=== PATIENT | female | born 1980 | race Caucasian/White ===

== ENCOUNTER 2023-07-30 05:36 | Emergency (ER) | payer OTHER, SELFPAY ==
[2023-07-30 05:39] VITALS: BP 137/96; PULSE 83; RESP 18; TEMP 36.7; O2SAT 100; BMI 27.4
--- NOTE | 2023-07-30 05:52 | ED_ITS ---
HPI - Animal Bite General Chief Complaint: Animal Bite Stated Complaint: guinea pig bite right point finger Time Seen by Provider: 07/30/23 05:50 Source: patient Mode of arrival: walk-in Limitations: no limitations History of Present Illness HPI narrative: feeding her guinea pig 2 days ago and it bit her on the tip of the right index finger. Now presents with swelling and erythema of the tip of the finger. Descri bes a fire pain. no weakness or numbness Related Data Home Medications Medication Instructions Recorded Confirmed levothyroxine 112 mcg tablet mcg 07/30/23 metformin 500 mg tablet mg 07/30/23 venlafaxine 100 mg tablet mg 07/30/23 Allergies Allergy/AdvReac Type Severity Reaction Status Date / Time No Known Drug Allergies Allergy Verified 07/30/23 05:43 Review of Systems ROS Status of ROS 10 or more systems reviewed and unremark able except as noted in history and below [facility] Social History Smoking status: Never smoker Exam Constitutional Vital Signs, click to edit/add: Last Vital Signs Temp 98.1 F 07/30/23 05:39 Pulse 83 07/30/23 05:39 Resp 18 07/30/23 05:39 BP 137/96 H 07/30/23 05:39 Pulse Ox 100 07/30/23 05:39 O2 Del Method Room Air 07/30/23 05:39 Common normals: no apparent distress, average body habitus, oriented x3, no limitations, healthy appearing, alert and well nourished [facility] Common normals: normocephalic and head/scalp atraumatic Eye Common normals: PERRL, EOMs intact bilaterally and conjunctivae normal Respiratory Common normals: normal respiratory effort, no retractions, no use of accessory muscles and clear to auscultation bilaterally Cardio Common normals: regular rate, regular rhythm, S1 normal heart sound and S2 normal heart sound Extremity Other: distal aspect of right index finger with erythema and closed cut. Mild swelling and mod. tenderness. no red streaks Neuro Common normals: oriented x3, CN's II-XII intact bilaterally, moves all extremities, no focal motor deficits and no sensory deficits noted Psych Appearance: grossly normal Course Vital Signs Vital signs: Vital Signs Temperature 98.1 F 07/30/23 05:39 Pulse Rate 83 07/30/23 05:39 Respiratory Rate 18 07/30/23 05:39 Blood Pressure 137/96 H 07/30/23 05:39 Pulse Oximetry 100 07/30/23 05:39 Oxygen Delivery Method Room Air 07/30/23 05:39 Temperature 98.1 F 07/30/23 05:39 Pulse Rate 83 07/30/23 05:39 Respiratory Rate 18 07/30/23 05:39 Blood Pressure 137/96 H 07/30/23 05:39 Pulse Oximetry 100 07/30/23 05:39 Oxygen Delivery Method Room Air 07/30/23 05:39 MDM - Animal Bite MDM Narrative Medical decision making narrative: patient bitten 2 days ago by family pet on tip of the right index finger. the bite wound is closed but infected. Patient given dose of Augmentin and discharged to follow up with her doctor Discharge Plan Discharge Stand Alone Forms: Portal Instructions Chief Complaint: Animal Bite Clinical Impression: Cellulitis of finger, Bite by animal Patient Disposition: Home, Self-Care Prescriptions / Home Meds: No Action metformin 500 mg tablet venlafaxine 100 mg tablet levothyroxine 112 mcg tablet Instructions: Cellulitis (ED) Additional Instructions: follow up with the family doctor for recheck in 2-3 days Referrals: Physician,Non-Staff, MD [Primary Care Provider] - 1 week
[2023-07-30] MEDS: AMOXICILLIN/POTASSIUM CLAV 1 TAB TABLET PO (06:12)
== END 2023-07-30 06:18 | disposition home or self-care (01) ==
PROVIDERS: Emergency Provider Internal Medicine
DX: S61.250A Open bite of right index finger without damage to nail, initial encounter (principal); L03.011 Cellulitis of right finger; W64.XXXA Exposure to other animate mechanical forces, initial encounter; Z79.84 Long term (current) use of oral hypoglycemic drugs; Z79.899 Other long term (current) drug therapy; Z79.890 Hormone replacement therapy
CPT/HCPCS: 99283

== ENCOUNTER 2023-12-25 21:36 | Outpatient (REF) | payer OTHER, SELFPAY ==
--- OUTSIDE RECORDS SUMMARY | 2023-12-25 21:40 | XMS_ITS | CCD ---
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 Name Role Phone Elizabeth Cabrera Unavailable MAXIMO ., DR HIWOT Llamas Consulting Unavailable BRADSHAW ., DR HIWOT Llamas Attending Unavailable BRADSHAW ., DR HIWOT Llamas Admitting Unavailable BRADSHAW ., DR HIWOT Llamas Primary Care Unavailable ANGEL ., DR GERMAIN Admitting Unavailable ANGEL ., DR GERMAIN Consulting Unavailable ANGEL ., DR GERMAIN Attending Unavailable BRADSHAW ., DR HIWOT Llamas Primary Care Unavailable Aki, Maddison Copeland Primary Care Physician Aki, Maddison Copeland Attending Unavailable Aki, Maddison L Attending Unavailable Aki, Maddison L Attending Unavailable Aki, Maddison L Attending Unavailable Aki, Maddison L Attending Unavailable Aki, Maddison L Attending Unavailable Aki, Maddison L Attending Unavailable Aki, Maddison L Admitting Unavailable Aki, Maddison L Attending Unavailable Aki, Maddison L Admitting Unavailable Aki, Maddison L Attending Unavailable Aki, Maddison L Admitting Unavailable Aki, Maddison L Attending Unavailable Aki, Maddison L Admitting Unavailable Aki, Maddison L Attending Unavailable Aki, Maddison L Admitting Unavailable Aki, Maddison L Attending Unavailable Aki, Maddison L Attending Unavailable Aki, Maddison L Attending Unavailable Allergies Allergy Classification Reported Allergen(s) Allergy Type Date of Onset Reaction(s) Facility (1 source) Megestrol Drug Allergy [facility] Repository (1 source) No Known Medication Allergies; Translations: [No Known Medication Allergies] Propensity to adverse reactions (disorder) [facility] Repository Medications Current Medications Medication Drug Class(es) Dates Sig (Normalized) Sig (Original) busPIRone hydrochloride 10 mg oral tablet (1 source) Start: 01-29-2023 take 1 tablet by mouth three times daily as needed for anxiety busPIRone 10 mg Tab 10 mg = 1 tab(s), Oral, TID, PRN Anxiety, # 90 tab(s), Refills(s) 0, Pharmacy: [facility]/pharmacy #[id number], 155, cm, 01/29/23 10:36:00 EDT, Height/Length Dosing, 64.5, kg, 01/29/23 10:36:00 EDT, Weight Dosing Start Date: 01/29/23 Status: Ordered cephalexin 500 mg oral capsule (2 sources) Cephalosporin Antibacterial Start: 02-14-2023 take 1 capsule by mouth every twelve hours cephalexin 500 mg Cap 500 mg = 1 cap(s), Oral, q12hr, # 20 cap(s), Refills(s) 0, Pharmacy: [facility]/pharmacy #[id number], 155, cm, 02/14/23 8:53:00 EDT, Height/Length Dosing, 66.8, kg, 02/14/23 8:53:00 EDT, Weight Dosing Start Date: 02/14/23 Status: Ordered cyclobenzaprine hydrochloride 7.5 mg oral tablet (1 source) Muscle Relaxant Start: 12-03-2023 take 1 tablet by mouth twice daily as needed for muscle spasms cyclobenzaprine 7.5 mg oral tablet 7.5 mg = 1 tab(s), Oral, BID, PRN for spasm, # 30 tab(s), Refills(s) 0, [id number], cm, 12/03/23 9:08:00 EDT, Height/Length Dosing, 65.5, kg, 12/03/23 9:08:00 EDT, Weight Dosing Start Date: 12/03/23 Status: Ordered levothyroxine sodium 0.088 mg oral tablet (6 sources) l-Thyroxine Start: 06-10-2023 take 1 tablet by mouth once daily levothyroxine 88 mcg (0.088 mg) Tab 88 mcg = 1 tab(s), Oral, Daily, # 90 tab(s), Refills(s) 1, Pharmacy: [facility]/pharmacy #[id number], 155, cm, 05/29/23 15:46:00 EST, Height/Length Dosing, 67.8, kg, 05/29/23 15:46:00 EST, Weight Dosing Start Date: 06/10/23 Status: Ordered Start: 03-15-2023 take 1 tablet by sven th once daily levothyroxine 88 mcg (0.088 mg) Tab 88 mcg = 1 tab(s), Oral, Daily, # 30 tab(s), Refills(s) 1, Pharmacy: [facility]/pharmacy #[id number], 155, cm, 02/14/23 8:53:00 EDT, Height/Length Dosing, 66.8, kg, 02/14/23 8:53:00 EDT, Weight Dosing Start Date: 03/15/23 Status: Ordered Start: 01-31-2023 take 1 capsule by [address] [facility] once daily levothyroxine 112 mcg (0.112 mg) oral capsule 112 mcg = 1 cap(s), Oral, Daily, # 30 cap(s), Refills(s) 1, Pharmacy: [facility]/pharmacy #[id number], 155, cm, 01/29/23 10:36:00 EDT, Height/Length Dosing, 64.5, kg, 01/29/23 10:36:00 EDT, Weight Dosing Start Date: 01/31/23 Status: Ordered Start: 09-12-2022 take 1 tablet by sven th once daily levothyroxine 125 mcg (0.125 mg) Tab 125 mcg = 1 tab(s), Oral, Daily, # 90 tab(s), Refills(s) 3, [id number] Start Date: 09/12/22 Status: Ordered Levothyroxine So dium Active meloxicam 15 mg oral tablet (1 source) Nonsteroidal Anti-inflammatory Drug Start: 12-03-2023 take 1 tablet by mouth once daily meloxicam 15 mg Tab 15 mg = 1 tab(s), Oral, Daily, # 30 tab(s), Refills(s) 0, Pharmacy: [facility]/pharmacy #[id number], 155, cm, 12/03/23 9:08:00 EDT, Height/Length Dosing, 65.5, kg, 12/03/23 9:08:00 EDT, Weight Dosing Start Date: 12/03/23 Status: Ordered metFORMIN hydrochloride 500 mg oral tablet (6 sources) Biguanide Start: 09-14-2022 take 1 tablet by mouth once daily metformin 500 mg Tab 500 mg = 1 tab(s), Oral, Daily, # 90 tab(s), Refills(s) 3, Pharmacy: [facility]/pharmacy #[id number], 155, cm, 01/29/23 10:36:00 EDT, Height/Length Dosing, 64.5, kg, 01/29/23 10:36:00 EDT, Weight Dosing Start Date: 01/29/23 Status: Ordered methylPREDNISolone 4 mg oral tablet (1 source) Corticosteroid Start: 12-03-2023 End: 12-09-2023 Medrol 4 mg Tab = 1 packet(s), Oral, As Directed, as directed on package labeling, X 6 day(s), # 21 tab(s), Refills(s) 0, Pharmacy: [facility]/pharmacy #[id number], 155, cm, 12/03/23 9:08:00 EDT, Height/Length Dosing, 65.5, kg, 12/03/23 9:08:00 EDT, Weight Dosing Start Date: 12/03/23 Stop Date: 12/09/23 Status: Ordered QUEtiapine 25 mg oral tablet (6 sources) Atypical Antipsychotic Start: 10-15-2023 take 1 tablet by mouth once daily quetiapine 25 mg Tab 25 mg = 1 tab(s), Oral, Daily, # 90 tab(s), Refills(s) 1, Pharmacy: [facility]/pharmacy #[id number], 155, cm, 05/29/23 15:46:00 EST, Height/Length Dosing, 67.8, kg, 05/29/23 15:46:00 EST, Weight Dosing Start Date: 10/15/23 Status: Ordered Start: 04-22-2023 take 1 tablet by sven th once daily quetiapine 25 mg Tab 25 mg = 1 tab(s), Oral, Daily, # 90 tab(s), Refills(s) 1, Pharmacy: [facility]/pharmacy #[id number], 155, cm, 02/14/23 8:53:00 EDT, Height/Length Dosing, 66.8, kg, 02/14/23 8:53:00 EDT, Weight Dosing Start Date: 04/22/23 Status: Ordered Start: 09-14-2022 take 1 tablet by sven th once daily quetiapine 25 mg Tab 25 mg = 1 tab(s), Oral, Daily, # 90 tab(s), Refills(s) 0, Pharmacy: [facility]/pharmacy #[id number], 155, cm, 01/29/23 10:36:00 EDT, Height/Length Dosing, 64.5, kg, 01/29/23 10:36:00 EDT, Weight Dosing Start Date: 01/29/23 Status: Ordered Completed/Discontinued Medications Medication Drug Class(es) Dates Sig (Normalized) Sig (Original) venlafaxine 100 mg oral tablet (7 sources) Serotonin and Norepinephrine Reuptake Inhibitor Start: 09-14-2022 take 1 tablet by mouth once daily venlafaxine 100 mg Tab 100 mg = 1 tab(s), Oral, Daily, TAKE 1 TABLET BY MOUTH EVERY DAY, # 90 tab(s), Refills(s) 3, [id number], cm, 01/29/23 10:36:00 EDT, Height/Length Dosing, 64.5, kg, 01/29/23 10:36:00 EDT, Weight Dosing Start Date: 01/29/23 Status: Ordered Venlafaxine HCl Active Problems Problem Classification Problem Date Documented Da te Episodic/Chronic Anxiety disorders (5 sources) Anxiety 01-29-2023 Chronic Immunizations and screening for infectious disease (2 sources) Contact with and (suspected) exposure to other viral communicable diseases; Translations: [Contact with and (suspected) exposure to other viral communicable diseases] Episodic Lymphadenitis (4 sources) Lymphadenopathy 02-14-2023 Episodic Nausea and vomiting (1 source) Vomiting; Translations: [Vomiting, unspecified] Episodic Other gastrointestinal disorders (1 source) Irritable bowel syndrome; Translations: [Irritable bowel syndrome without diarrhea] Chronic Other gastrointestinal disorders (1 source) Diarrhea; Translations: [Diarrhea, unspecified] Episodic Other screening for suspected conditions (not mental disorders or infectious disease) (4 sources) Encounter for screening for malignant neoplasm of cervix; Translations: [ENC SCREENING MALIG NEOPLASM CERV] Onset: 07-03-2022 Episodic Other upper respiratory disease (4 sources) Nasal sinus problem 02-14-2023 Episodic Other upper respiratory infections (3 sources) Sore throat symptom; Translations: [Acute pharyngitis, unspecified] Episodic Ovarian cyst (5 sources) Cyst of ovary 09-14-2022 Episodic Spondylosis; intervertebral disc disorders; other back problems (1 source) Low back pain 12-03-2023 Episodic Thyroid disorders (5 sources) 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 Unclassified (2 sources) Patient encounter status 05-29-2023 Results Test Name Value Interpretation Reference Range Facility Reminderson 12-05-2023 Reminders Reminders - From: Maddison Basurto To: [facility] - Clinical; Sent: 12/05/2023 08:03:35 EDT Show up: 12/05/2023 08:03:00 EDT Subject: Ambulatory Reminder Due Date/Time: 12/06/2023 08:02:00 EDT back x ray multilevel osteoarthritis of lumbar spine, no fractures Results: Date Result Type Result Name 12/04/2023 18:07 Radiology XR Spine Lumbosacral Minimum 4 Views Gale called and advised, she will continue the meloxicam has only had 2 doses so far and if doesn't relieve things will be in touch [facility] XR Spine Lumbosacral Minimum 4 Viewson 12-04-2023 XR Spine Lumbosacral Minimum 4 Views Exam Date/Time: 12/03/2023 13:24 EDT Reason for Exam: M54.50, Z78.9;Back pain Report IMPRESSION: MILD MULTILEVEL OSTEOARTHRITIS OF LUMBAR SPINE. NO ACUTE FRACTURE CLINICAL HISTORY: Back pain, M54.50, Z78.9 COMPARISON: NONE FINDINGS: 6 views of the lumbar spine are submitted. There are 5 lumbar-type vertebra. There is narrowing of the L5-S1 disc space. There is mild degenerative changes posterior facets lower lumbar spine. No significant anterior spondylosis.. No significant listhesis. No spondylolysis. The SI joints are intact. No focal bony as No acute fracture Ordering Provider: Maddison Prabhakar FINAL REPORT Dictated: 12/04/2023 6:03 pm Ruben Szymanski Signed (Electronic Signature): 12/04/2023 6:03 pm Signed by: Ruben Szymanski Transcribed by: TOM Technologist: HELENA Technical Comments Radiation Dose: Ka,r in mGy = na DAP = na [facility] Ambulatory Visit Summaryon 0 12-03-2023 Ambulatory Visit Summary Ambulatory Visit Summary GALE SOSA :1980 Visit Date:12/03/2023 Ambulatory Visit Instructions Your Diagnosis Low back pain Non-smoker BMI 27.0-27.9,adult Your Care Team Attending Physician - Maddison Basurto Primary Care Physician - Maddison Basurto This Is Your Medications List levothyroxine (levothyroxine 88 mcg (0.088 mg) Tab) metformin (metformin 500 mg Tab) quetiapine (quetiapine 25 mg Tab) venlafaxine (venlafaxine 100 mg Tab) Procedures Performed AZEEM - Total abdominal hysterectomy (2021), Ablation (2020), section, Ovarian cyst, Right knee. Discharge Vitals Temperature (Temporal Artery) 36.9 ?C Heart Rate (Peripheral) 84 Respiratory Rate 16 Blood Pressure 122/80 Height 155.0 cm Height 61 in Weight 65.45 kg Weight 143.99 lb BMI 27.24 What to do next Scheduled Follow-Up Appointments Saturday 4:40 PM EDT With: Maddison Basurto Where: [facility] [place] [facility] Family Medicine Office/Clini [facility] Noteon 12-03-2023 Family Medicine Office/Clinic Note Family Medicine Office/Clinic Note HPI Staff Pt here today due to low back pain. Onset: started 6 weeks ago Location: lower back Duration: constant pain Characteristics: feels like somebody punched her Aggravated by: walking and bending too much walking Relieved by: Tried heat Advil did not help with either Timing:_ time does not matters Associated Symptoms:_ no Back issues since high school. Has had muscle relaxers to help the pain... did seem to help when she did take these. Would help for 2-3 days then wears off History of Present Illness pt presents today for low back pain Review of Systems PHQ Score Initial Depression Screen Score: 0 SCORE Physical Exam Vitals & Measurements T: 36.9 ?C(Temporal Artery) HR: 84(Peripheral) RR: 16 BP: 122/80 SpO2: 98% HT: 61 in HT: 155.0 cm WT: 65.45 kg WT: 143.99 lb BMI: 27.24 General: alert, no acute distress ENMT: oral mucosa moist, no pharyngeal erythema or exudate Cardiovascular: regular rate and rhythm, normal peripheral perfusion Respiratory: Lungs CTA, respirations non labored Extremities: no deformity, no trauma Neurological: oriented x 4, LOC appropriate for age, CN II-XII intact, motor strength equal & normal bilaterally, speech normal difficulty bending, putting on pants, getting in car Assessment/Plan 1. Low back pain (M54.50: Low back pain, unspecified) pt c/o low back pain. has had back pain since she was a teenager. was told about 15 years ago she had a protruding disc. back pain is starting to get worse. is trying to lose weight but exercising is difficult due to the pain. she has been doing stretches at home. will continue those for 6 weeks, will send meloxicam, medrol dose pack and muscle relaxer to pharmacy. Ordered: cyclobenzaprine, 7.5 mg = 1 tab(s), Oral, BID, PRN for spasm, # 30 tab(s), Refills(s) 0, [id number], cm, 12/03/23 9:08:00 EDT, Height/Length Dosing, 65.5, kg, 12/03/23 9:08:00 EDT, Weight Dosing meloxicam, 15 mg = 1 tab(s), Oral, Daily, # 30 tab(s), Refills(s) 0, [id number] 155, cm, 12/03/23 9:08:00 EDT, Height/Length Dosing, 65.5, kg, 12/03/23 9:08:00 EDT, Weight Dosing methylPREDNISolone, = 1 packet(s), Oral, As Directed, as directed on package labeling, X 6 day(s), # 21 tab(s), Refills(s) 0, Pharmacy: [facility]/pharmacy #[id number], 155, cm, 12/03/23 9:08:00 EDT, Height/Length Dosing, 65.5, kg, 12/03/23 9:08:00 EDT, Weight Dosing 2. Non-smoker (Z78.9: Other specified health status) continue not smoking Ordered: cyclobenzaprine, 7.5 mg = 1 tab(s), Oral, BID, PRN for spasm, # 30 tab(s), Refills(s) 0, Pharmacy: [facility]/pharmacy #[id number], 155, cm, 12/03/23 9:08:00 EDT, Height/Length Dosing, 65.5, kg, 12/03/23 9:08:00 EDT, Weight Dosing meloxicam, 15 mg = 1 tab(s), Oral, Daily, # 30 tab(s), Refills(s) 0, [id number] 155, cm, 12/03/23 9:08:00 EDT, Height/Length Dosing, 65.5, kg, 12/03/23 9:08:00 EDT, Weight Dosing methylPREDNISolone, = 1 packet(s), Oral, As Directed, as directed on package labeling, X 6 day(s), # 21 tab(s), Refills(s) 0, [id number] 155, cm, 12/03/23 9:08:00 EDT, Height/Length Dosing, 65.5, kg, 12/03/23 9:08:00 EDT, Weight Dosing 3. BMI 27.0-27.9,adult (Z68.27: Body mass index [BMI] 27.0-27.9, adult) BMI education given Ordered: cyclobenzaprine, 7.5 mg = 1 tab(s), Oral, BID, PRN for spasm, # 30 tab(s), Refills(s) 0, [id number] 155, cm, 12/03/23 9:08:00 EDT, Height/Length Dosing, 65.5, kg, 12/03/23 9:08:00 EDT, Weight Dosing meloxicam, 15 mg = 1 tab(s), Oral, Daily, # 30 tab(s), Refills(s) 0, [id number], 155, cm, 12/03/23 9:08:00 EDT, Height/Length Dosing, 65.5, kg, 12/03/23 9:08:00 EDT, Weight Dosing methylPREDNISolone, = 1 packet(s), Oral, As Directed, as directed on package labeling, X 6 day(s), # 21 tab(s), Refills(s) 0, [id number], 155, cm, 12/03/23 9:08:00 EDT, Height/Length Dosing, 65.5, kg, 12/03/23 9:08:00 EDT, Weight Dosing Follow-up No qualifying data available Problem List/Past Medical History Ongoing Anxiety Hailee's disease Low back pain Ovarian cyst Pre-employment examination Sinus pressure Swollen lymph nodes Historical No qualifying data Procedure/Surgical History AZEEM - Total abdominal hysterectomy (2021), Ablation (2020), section, Ovarian cyst, Right knee. Medications cyclobenzaprine 7.5 mg oral tablet, 7.5 mg= 1 tab(s), Oral, BID, PRN levothyroxine 88 mcg (0.088 mg) Tab, 88 mcg= 1 tab(s), Oral, Daily, 1 refills Medrol 4 mg Tab, 1 packet(s), Oral, As Directed meloxicam 15 mg Tab, 15 mg= 1 tab(s), Oral, Daily metformin 500 mg Tab, 500 mg= 1 tab(s), Oral, Daily, 3 refills quetiapine 25 mg Tab, 25 mg= 1 tab(s), Oral, Daily, 1 refills venlafaxine 100 mg Tab, 100 mg= 1 tab(s), Oral, Daily, 3 refills Allergies No Known Medication Allergies Social History Tobacco Never (less than 100 in lifetime) Tobacco Use:. Never Smokeless Tobacco Use:. C (more content not included)... [facility] Comment on above: Result Comment: Elec tronically Signed By: Maddison Basurto\.br\Date and Time Signed: 12/03/23 09:45 EDT Reminderson 06-10-2023 Reminders - From: Maddison Basurto To: B - Clinical; Sent: 06/10/2023 08:49:47 EST Show up: 06/10/2023 08:50:00 EST Subject: Ambulatory Reminder Due Date/Time: 06/11/2023 08:49:00 EST TSH is normal. does she need refills on meds? Results: Date Result Name Value Ref Range 06/07/2023 8:33 TSH 4.12 mcIU/mL (0.34 - 5.60) Patient informed of results. Patient does need a refill. Will be proposed in another message. [facility] Ambulatory Visit Summaryon 0 06-07-2023 Ambulatory Visit Summary GALE SOSA :1980 Visit Date:06/07/2023 Ambulatory Visit Instructions Your Care Team Attending Physician - Maddison Basurto Primary Care Physician - Maddison Basurto This Is Your Medications List levothyroxine (levothyroxine 88 mcg (0.088 mg) Tab) metformin (metformin 500 mg Tab) quetiapine (quetiapine 25 mg Tab) venlafaxine (venlafaxine 100 mg Tab) Procedures Performed AZEEM - Total abdominal hysterectomy (2021), Ablation (2020), section, Ovarian cyst, Right knee. Medications What How Much When Instructions Unchanged levothyroxine (levothyroxine 88 mcg (0.088 mg) Tab) 1 Tablets By Mouth Every day Unchanged metformin (metformin 500 mg Tab) 1 Tablets By Mouth Every day Unchanged quetiapine (quetiapine 25 mg Tab) 1 Tablets By Mouth Every day Unchanged venlafaxine (venlafaxine 100 mg Tab) 1 Tablets By Mouth Every day TAKE 1 TABLET BY MOUTH EVERY DAY Allergies No Known Medication Allergies Problems Ongoing - Any problem that you are currently receiving treatment for. Anxiety Hailee's disease Ovarian cyst Pre-employment examination Sinus pressure Swollen lymph nodes Patient Survey You may receive a survey via text or e-mail asking about your office visit. Please share your experience with us by completing your survey. We appreciate your feedback and thank you for choosing us for your care. [facility] CHEMISTRYOrdered By: SYSTEM SYSTEM on 06-07-2023 TSH Qn 4.12 m[IU]/L Normal 0.34 - 5.60 mcIU/mL Remisol Chem Nurse Consultation Noteon Nurse Consultation Note Physical Exam pt here for lab draw for TSH, pt tolerated well. Assessment/Plan Hypothyroid (E03.9: Hypothyroidism, unspecified) Medications levothyroxine 88 mcg (0.088 mg) Tab, 88 mcg= 1 tab(s), Oral, Daily, 1 refills metformin 500 mg Tab, 500 mg= 1 tab(s), Oral, Daily, 3 refills quetiapine 25 mg Tab, 25 mg= 1 tab(s), Oral, Daily, 1 refills venlafaxine 100 mg Tab, 100 mg= 1 tab(s), Oral, Daily, 3 refills Allergies No Known Medication Allergies Immunizations Vaccine Date Status diphtheria/pertussis , acel/tetanus adult 11/15/2018 Recorded [facility] TSHon 06-07-2023 TSH Qn 4.12 m[IU]/L Normal 0.34-5.60 [facility] Comment on above: Performed By: #### [id number] ####[facility] [id number] [place] [address] Formson 05-30-2023 Forms [id number] [facility] Ambulatory Visit Summaryon 0 05-29-2023 Ambulatory Visit Summary GALE SOSA :1980 Visit Date:05/29/2023 Ambulatory Visit Instructions Your Diagnosis BMI 28.0-28.9,adult Non-smoker Your Care Team Attending Physician - Maddison Basurto Primary Care Physician - Maddison Basurto This Is Your Medications List levothyroxine (levothyroxine 88 mcg (0.088 mg) Tab) metformin (metformin 500 mg Tab) quetiapine (quetiapine 25 mg Tab) venlafaxine (venlafaxine 100 mg Tab) Procedures Performed AZEEM - Total abdominal hysterectomy (2021), Ablation (2020), section, Ovarian cyst, Right knee. Discharge Vitals Heart Rate (Peripheral) 72 Respiratory Rate 18 Blood Pressure 110/80 Height 155 cm Height 61 in Weight 67.8 kg Weight 149.16 lb BMI 28.22 What to do next Scheduled Follow-Up Appointments Saturday 8:20 AM EST Where: [facility] [place] [facility] Family Medicine Office/Clini c Noteon 05-29-2023 Family Medicine Office/Clinic Note HPI Staff Gale is a 42 year old female presenting for physical paperwork Pt has form she needs filled out for work physical. 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 History of Present Illness pt presents today for pre-employment physical. 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 Cardiovascular: no chest pain, no palpitations, no edema. Neurologic: no headache, no dizziness, no numbness, no weakness. Physical Exam Vitals & Measurements HR: 72(Peripheral) RR: 18 BP: 110/80 SpO2: 99% HT: 61 in HT: 155 cm WT: 67.8 kg WT: 149.16 lb BMI: 28.22 General: alert, no acute distress ENMT: oral mucosa moist, no pharyngeal erythema or exudate Cardiovascular: regular rate and rhythm, normal peripheral perfusion Respiratory: Lungs CTA, respirations non labored Extremities: no deformity, no trauma Neurological: oriented x 4, LOC appropriate for age, CN II-XII intact, motor strength equal & normal bilaterally, speech normal Assessment/Plan 1. Pre-employment examination (Z02.1: Encounter for pre-employment examination) pt presents today for pre employment exam. denies needs. physical exam WNL. TB questions negative does not require TB test. all forms complete and scanned in. RTC as needed 2. BMI 28.0-28.9,adult (Z68.28: Body mass index [BMI] 28.0-28.9, adult) BMI education complete 3. Non-smoker (Z78.9: Other specified health status) continue not smoking Ordered: cephalexin, 500 mg = 1 cap(s), Oral, q12hr, # 20 cap(s), Refills(s) 0, [facility]: [id number], 155, cm, 02/14/23 8:53:00 EDT, Height/Length Dosing, 66.8, kg, 02/14/23 8:53:00 EDT, Weight Dosing Orders: levothyroxine, 50 mcg = 1 tab(s), Oral, Daily, # 30 tab(s), Refills(s) 1, Pharmacy: [facility]acy #[id number], 155, cm, 02/14/23 8:53:00 EDT, Height/Length Dosing, 66.8, kg, 02/14/23 8:53:00 EDT, Weight Dosing Follow-up No qualifying data available Problem List/Past Medical History Ongoing Anxiety Hailee's disease Ovarian cyst Pre-employment examination Sinus pressure Swollen lymph nodes Historical No qualifying data Procedure/Surgical History AZEEM - Total abdominal hysterectomy (2021), Ablation (2020), section, Ovarian cyst, Right knee. Medications levothyroxine 88 mcg (0.088 mg) Tab, 88 mcg= 1 tab(s), Oral, Daily, 1 refills metformin 500 mg Tab, 500 mg= 1 tab(s), Oral, Daily, 3 refills quetiapine 25 mg Tab, 25 mg= 1 tab(s), Oral, Daily, 1 refills venlafaxine 100 mg Tab, 100 mg= 1 tab(s), Oral, Daily, 3 refills Allergies No Known Medication Allergies Social History Tobacco Never (less than 100 in lifetime) Tobacco Use:. Never Smokeless Tobacco Use:. Household tobacco concerns: No., 05/29/2023 Immunizations Vaccine Date Status diphtheria/pertussis , acel/tetanus adult 11/15/2018 Recorded [facility] Comment on above: Result Comment: Elec tronically Signed By: Maddison Basurto\.br\Date and Time Signed: 05/29/23 16:16 EST Reminderson 04-26-2023 Reminders - From: Maddison Basurto To: B - Clinical; Sent: 04/25/2023 14:33:06 EST Show up: 04/25/2023 14:33:00 EST Subject: Ambulatory Reminder Due Date/Time: 04/26/2023 14:32:00 EST Let Yvette know we need to decrease her synthroid again. TSH is still too low Results: Date Result Name Ind Value Ref Range 04/24/2023 8:34 TSH ((L)) 0.07 mcIU/mL (0.34 - 5.60) spoke with patient notified of message below, transferred to electrician front to schedule 6 week re draw TSH [facility] CHEMISTRYOrdered By: SYSTEM SYSTEM on 04-24-2023 TSH Qn 0.07 m[IU]/L Low 0.34 - 5.60 mcIU/mL [facility] Remisol TSHon 04-24-2023 TSH Qn 0.07 m[IU]/L Low 0.34-5.60 [facility] Comment on above: Performed By: #### 2 [id number] ####[facility] [address] [place] [address] CHEMISTRYOrdered By: SYSTEM SYSTEM on 03-14-2023 TSH Qn 0.01 m[IU]/L Low 0.34 - 5.60 mcIU/mL [facility] Remisol TSHon 03-14-2023 TSH Qn 0.01 m[IU]/L Low 0.34-5.60 [facility] Comment on above: Performed By: #### 2 [id number] ####[facility] [address] [place] [address] Ambulatory Visit Summaryon 0 02-14-2023 Ambulatory Visit Summary GALE SOSA :1980 Visit Date:02/14/2023 Ambulatory Visit Instructions Your Diagnosis Swollen lymph nodes Sinus pressure Non-smoker BMI 27.0-27.9,adult Your Care Team Attending Physician - Maddison Basurto Primary Care Physician - Maddison Basurto This Is Your Medications List cephalexin (cephalexin 500 mg Cap) levothyroxine (levothyroxine 112 mcg (0.112 mg) oral capsule) metformin (metformin 500 mg Tab) methylPREDNISolone (Medrol Dosepack 4 mg Tab) quetiapine (quetiapine 25 mg Tab) venlafaxine (venlafaxine 100 mg Tab) Procedures Performed AZEEM - Total abdominal hysterectomy (2021), Ablation (2020), section, Ovarian cyst, Right knee. Discharge Vitals Heart Rate (Peripheral) 68 Respiratory Rate 18 Blood Pressure 126/84 Height 155 cm Height 61 in Weight 66.85 kg Weight 147.07 lb BMI 27.83 What to do next Scheduled Follow-Up Appointments 2022 8:20 AM EDT Where: [facility] Medicine Christina Normal [facility] Family Medicine Office/Clini c Noteon 02-14-2023 Family Medicine Office/Clinic Note HPI Staff Gale is a 42 year old female presenting for acute visit Onset: 2 days ago Pain Location: swollen lymph nodes right side Aggravated by: turning head to left Relieved by: unsure OTC used: none Questions/Concerns: Denies any sinus symptoms no sore throat, pt states when she wakes up in the morning it slightly swelled pain isn't to bad once she up and talking by afternoon is larger and more painful. pt states stopped taking Buspirone because she didn't feel any different while taking it. History of Present Illness pt presents today for swollen and painful lymph node on right side of neck. Review of Systems PHQ Score Initial Depression Screen Score: 0 ROS - Provider Constitutional: no fever, no chills, no sweats, no fatigue Respiratory: no shortness of breath, no cough, no orthopnea, no wheezing. Cardiovascular: no chest pain, no palpitations, no edema. Neurologic: no headache, no dizziness, no numbness, no weakness. swollen lymph node right neck Physical Exam Vitals & Measurements HR: 68(Peripheral) RR: 18 BP: 126/84 SpO2: 99% HT: 61 in HT: 155 cm WT: 66.85 kg WT: 147.07 lb BMI: 27.83 General: alert, no acute distress ENMT: oral mucosa moist, no pharyngeal erythema or exudate Cardiovascular: regular rate and rhythm, normal peripheral perfusion Respiratory: Lungs CTA, respirations non labored Extremities: no deformity, no trauma Neurological: oriented x 4, LOC appropriate for age, CN II-XII intact, motor strength equal & normal bilaterally, speech normal right sided swollen lymph node Assessment/Plan 1. Swollen lymph nodes (R59.9: Enlarged lymph nodes, unspecified) pt c/o swollen tender lymph node since Saturday. Also having sinus pressure on right side as well. will treat with antibiotics and steroid. all questions answered. RTC as needed Ordered: cephalexin, 500 mg = 1 cap(s), Oral, q12hr, # 20 cap(s), Refills(s) 0, Pharmacy: [facility]/pharmacy #[id number], 155, cm, 02/14/23 8:53:00 EDT, Height/Length Dosing, 66.8, kg, 02/14/23 8:53:00 EDT, Weight Dosing methylPREDNISolone, = 1 packet(s), Oral, As Directed, as directed on package labeling, X 6 day(s), # 21 tab(s), Refills(s) 0, [id number] 155, cm, 02/14/23 8:53:00 EDT, Height/Length Dosing, 66.8, kg, 02/14/23 8:53:00 EDT, Weight Dosing 2. Sinus pressure (J34.89: Other specified disorders of nose and nasal sinuses) see above Ordered: cephalexin, 500 mg = 1 cap(s), Oral, q12hr, # 20 cap(s), Refills(s) 0, [id number], 155, cm, 02/14/23 8:53:00 EDT, Height/Length Dosing, 66.8, kg, 02/14/23 8:53:00 EDT, Weight Dosing methylPREDNISolone, = 1 packet(s), Oral, As Directed, as directed on package labeling, X 6 day(s), # 21 tab(s), Refills(s) 0, [id number], 155, cm, 02/14/23 8:53:00 EDT, Height/Length Dosing, 66.8, kg, 02/14/23 8:53:00 EDT, Weight Dosing 3. Non-smoker (Z78.9: Other specified health status) Continue not smoking Ordered: cephalexin, 500 mg = 1 cap(s), Oral, q12hr, # 20 cap(s), Refills(s) 0, [id number], 155, cm, 02/14/23 8:53:00 EDT, Height/Length Dosing, 66.8, kg, 02/14/23 8:53:00 EDT, Weight Dosing methylPREDNISolone, = 1 packet(s), Oral, As Directed, as directed on package labeling, X 6 day(s), # 21 tab(s), Refills(s) 0, [id number], 155, cm, 02/14/23 8:53:00 EDT, Height/Length Dosing, 66.8, kg, 02/14/23 8:53:00 EDT, Weight Dosing 4. BMI 27.0-27.9,adult (Z68.27: Body mass index [BMI] 27.0-27.9, adult) BMI education complete Ordered: cephalexin, 500 mg = 1 cap(s), Oral, q12hr, # 20 cap(s), Refills(s) 0, [id number], 155, cm, 02/14/23 8:53:00 EDT, Height/Length Dosing, 66.8, kg, 02/14/23 8:53:00 EDT, Weight Dosing methylPREDNISolone, = 1 packet(s), Oral, As Directed, as directed on package labeling, X 6 day(s), # 21 tab(s), Refills(s) 0, [id number], 155, cm, 02/14/23 8:53:00 EDT, Height/Length Dosing, 66.8, kg, 02/14/23 8:53:00 EDT, Weight Dosing Orders: busPIRone, 10 mg = 1 tab(s), Oral, TID, PRN Anxiety, # 90 tab(s), Refills(s) 0, [id number], 155, cm, 01/29/23 10:36:00 EDT, Height/Length Dosing, 64.5, kg, 01/29/23 10:36:00 EDT, Weight Dosing Follow-up No qualifying data available Problem List/Past Medical History Ongoing Anxiety Hailee's disease Ovarian cyst Sinus pressure Swollen lymph nodes Historical No qualifying data Procedure/Surgical History AZEEM - Total abdominal hysterectomy (2021), Ablation (2020), section, Ovarian cyst, Right knee. Medications cephalexin 500 mg Cap, 500 mg= 1 cap(s), Oral, q12hr levothyroxine 112 mcg (0.112 mg) oral capsule, 112 mcg= 1 cap(s), Oral, Daily, 1 refills Medrol Dosepack 4 mg Tab, 1 packet(s), Oral, As Directed metformin 500 mg Tab, 500 mg= 1 tab(s), Oral, Daily, 3 refills quetiapine 25 mg Tab, 25 mg= 1 tab(s), Oral, Daily venlafaxine 100 mg Tab, 100 mg= 1 tab(s), Oral, Daily, 3 refills Allergies No Known M (more content not included)... Normal [facility] Comment on above: Result Comment: Elec tronically Signed By: Maddison Basurto\.br\Date and Time Signed: 02/14/23 09:06 EDT T3 Freeon 01-31-2023 Free T3 [Mass/Vol] 3.6 pg/mL Invalid Interpretation Code 2.0-4.4 [facility] Comment on above: Result Comment: Perf ormed at: [facility] [id number] PhD Monty Cedillo Performed By: #### 2 [id number] ####[facility] [address] [place] [address] Ambulatory Visit Summaryon 0 01-29-2023 Ambulatory Visit Summary GALE SOSA :1980 Visit Date:01/29/2023 Ambulatory Visit Instructions Your Diagnosis Hailee's disease Anxiety Your Care Team Attending Physician - Maddison Basurto Primary Care Physician - Maddison Basurto This Is Your Medications List levothyroxine (levothyroxine 125 mcg (0.125 mg) Tab) metformin (metformin 500 mg Tab) quetiapine (quetiapine 25 mg Tab) venlafaxine (venlafaxine 100 mg Tab) Procedures Performed AZEEM - Total abdominal hysterectomy (2021), Ablation (2020), section, Ovarian cyst, Right knee. Discharge Vitals Heart Rate (Peripheral) 76 Respiratory Rate 18 Blood Pressure 124/88 Height 155 cm Height 61 in Weight 64.5 kg Weight 141.9 lb BMI 26.85 Medications What How Much When Instructions Unchanged levothyroxine (levothyroxine 125 mcg (0.125 mg) Tab) 1 Tablets By Mouth Every day Unchanged metformin (metformin 500 mg Tab) 1 Tablets By Mouth Every day Unchanged quetiapine (quetiapine 25 mg Tab) 1 Tablets By Mouth At bedtime Unchanged venlafaxine (venlafaxine 100 mg Tab) 1 Tablets By Mouth Every day Allergies No Known Medication Allergies Problems Ongoing - Any problem that you are currently receiving treatment for. Anxiety Hailee's disease Ovarian cyst Normal [facility] CHEMISTRYOrdered By: SYSTEM SYSTEM on 01-29-2023 Free T4 [Mass/Vol] 1.77 ng/dL High 0.58 - 1. 64 ng/dL [facility] TSH Qn 0.01 m[IU]/L Low 0.34 - 5.60 mcIU/mL [facility] Remisol Family Medicine Office/Clini c Noteon 01-29-2023 Family Medicine Office/Clinic Note HPI Staff Gale is a 42 year old female presenting to establish care Establish Care: History: Any previous diagnosis: hypothyroidism, Anxiety History of seeing any specialist: When was your last doctors visit: Last provider: Dr Bradshaw Any recent labs: 04/17/2022 TSH 0.017 EDELMIRA: 11 Health Maintenance UTD: Colonoscopy: 2017 normal Mammogram: no Pelvic/Pap: 06/2022 normal Acute: Current issues/complaints: would like disscuss medication she does feel better since taking it but doesn't feel she is where she would like to be. History of Present Illness pt presents today to establish care Review of Systems PHQ Score Initial Depression Screen Score: 1 ROS - Provider Constitutional: no fever, no chills, no sweats, no fatigue Respiratory: no shortness of breath, no cough, no orthopnea, no wheezing. Cardiovascular: no chest pain, no palpitations, no edema. Neurologic: no headache, no dizziness, no numbness, no weakness. Physical Exam Vitals & Measurements HR: 76(Peripheral) RR: 18 BP: 124/88 SpO2: 99% HT: 61 in HT: 155 cm WT: 64.5 kg WT: 141.9 lb BMI: 26.85 General: alert, no acute distress ENMT: oral mucosa moist, no pharyngeal erythema or exudate Cardiovascular: regular rate and rhythm, normal peripheral perfusion Respiratory: Lungs CTA, respirations non labored Extremities: no deformity, no trauma Neurological: oriented x 4, LOC appropriate for age, CN II-XII intact, motor strength equal & normal bilaterally, speech normal Assessment/Plan 1. 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 last TSH was drawn in March 0.017. pt states Dr. Bradshaw wanted to keep it that low so he did not adjust dose at that time. will draw labs today. pt will have annual labs in March. Ordered: busPIRone, 10 mg = 1 tab(s), Oral, TID, PRN Anxiety, # 90 tab(s), Refills(s) 0, [id number] 155, cm, 01/29/23 10:36:00 EDT, Height/Length Dosing, 64.5, kg, 01/29/23 10:36:00 EDT, Weight Dosing Free T4 Lab Specimen Collect 25701 T3 Free Thyroid Stimulating Hormone 2. Anxiety (F41.9: Anxiety disorder, unspecified) pt states she feels better than when she was put on this medication . but feels like she still has anxiety depending on the situation. discussed options. pt would like to add Buspar up to three times per day if needed. she will start with once a day and see how she feels. and add as needed. RTC 4 weeks for follow up. Ordered: busPIRone, 10 mg = 1 tab(s), Oral, TID, PRN Anxiety, # 90 tab(s), Refills(s) 0, [id number], 155, cm, 01/29/23 10:36:00 EDT, Height/Length Dosing, 64.5, kg, 01/29/23 10:36:00 EDT, Weight Dosing Orders: metformin, 500 mg = 1 tab(s), Oral, Daily, # 90 tab(s), Refills(s) 3, [id number], 155, cm, 01/29/23 10:36:00 EDT, Height/Length Dosing, 64.5, kg, 01/29/23 10:36:00 EDT, Weight Dosing quetiapine, 25 mg = 1 tab(s), Oral, Daily, # 90 tab(s), Refills(s) 0, [id number], 155, cm, 01/29/23 10:36:00 EDT, Height/Length Dosing, 64.5, kg, 01/29/23 10:36:00 EDT, Weight Dosing venlafaxine, 100 mg = 1 tab(s), Oral, Daily, TAKE 1 TABLET BY MOUTH EVERY DAY, # 90 tab(s), Refills(s) 3, [id number], 155, cm, 01/29/23 10:36:00 EDT, Height/Length Dosing, 64.5, kg, 01/29/23 10:36:00 EDT, Weight Dosing Follow-up No qualifying data available Problem List/Past Medical History Ongoing Anxiety Hailee's disease Ovarian cyst Historical No qualifying data Procedure/Surgical History AZEEM - Total abdominal hysterectomy (2021), Ablation (2020), section, Ovarian cyst, Right knee. Medications busPIRone 10 mg Tab, 10 mg= 1 tab(s), Oral, TID, PRN levothyroxine 125 mcg (0.125 mg) Tab, 125 mcg= 1 tab(s), Oral, Daily, 3 refills metformin 500 mg Tab, 500 mg= 1 tab(s), Oral, Daily metformin 500 mg Tab, 500 mg= 1 tab(s), Oral, Daily, 3 refills quetiapine 25 mg Tab, 25 mg= 1 tab(s), Oral, Bedtime quetiapine 25 mg Tab, 25 mg= 1 tab(s), Oral, Daily venlafaxine 100 mg Tab, 100 mg= 1 tab(s), Oral, Daily venlafaxine 100 mg Tab, 100 mg= 1 tab(s), Oral, Daily, 3 refills Allergies No Known Medication Allergies Social History Tobacco Never (less than 100 in lifetime) Tobacco Use:. Never Smokeless Tobacco Use:. Household tobacco concerns: No., 01/29/2023 Immunizations Vaccine Date Status diphtheria/pertussis , acel/tetanus adult 11/15/2018 Recorded Normal [facility] Comment on above: Result Comment: Elec tronically Signed By: Maddison Basurto\.br\Date and Time Signed: 01/29/23 13:26 EDT Free T4on 01-29-2023 Free T4 [Mass/Vol] 1.77 ng/dL High 0.58-1.64 [facility] Comment on above: Performed By: #### 2 [id number] ####[facility] [address] [place] [address] TSHon 01-29-2023 TSH Qn 0.01 m[IU]/L Low 0.34-5.60 [facility] Comment on above: Performed By: #### 2 [id number], [id number] ####[facility] [address] [place] [id number] PAP ACOG PANEL 2: 21 to 29on 07-09-2022 . . Normal [facility] Comment on above: Result Comment: Perf ormed at: WB Performed By: #### 4 [id number] #### [facility] [address] [address] [address] Galen Meyers Age Gdln ACOG Testing 30-65 Normal [facility] Comment on above: Performed By: #### 4 [id number] #### [facility] [address] [address] [address] Galen Meyers DIAGNOSIS: Comment Normal [facility] Comment on above: Result Comment: NEGA TIVE FOR INTRAEPITHELIAL LESION OR MALIGNANCY. Performed at: WB Performed By: #### 4 [id number] #### [facility] [address] [place] [address] Dr. Galen Meyers HPV Aptima Negative Normal Negative [facility] Comment on above: Result Comment: This nucleic acid amplification test detects fourteen high-risk HPV types (16,18,31,33,35,39,45,51,52,56,58,59,66,68) without differentiation. Performed at: =G Performed By: #### 4 [id number] #### [facility] [address] [address] [address] Galen Meyers HPV Genotype Reflex Comment Normal [facility] Comment on above: Result Comment: Crit eria not met, HPV Genotype not performed. Performed at: WB Performed By: #### 4 [id number] #### [facility] [address] [address] [address] Galen Meyers Methodology: Comment Normal [facility] Comment on above: Result Comment: This liquid based ThinPrep(R) pap test was screened with the use of an image guided system. Performed at: WB Performed By: #### 4 [id number] #### [facility] [address] [place] [address] Dr. Galen Meyers Note: Comment Normal [facility] Comment on above: Result Comment: The Pap smear is a screening test designed to aid in the detection of premalignant and malignant conditions of the uterine cervix. It is not a diagnostic procedure and should not be used as the sole means of detecting cervical cancer. Both false-positive and false-negative reports do occur. . Performed at: WB Performed By: #### 4 [id number] #### [facility] [address] [place] [address] Dr. Galen Meyers Performed by: Comment Normal [facility] Comment on above: Result Comment: Inge Sneed, Italian Teacher (ASCP) Performed at: WB Performed By: #### 4 [id number] #### [facility] [address] [place] [address] Dr. Galen Meyers Specimen adequacy: Comment Normal [facility] Comment on above: Result Comment: Sati sfactory for evaluation. No endocervical component is identified. Performed at: WB Performed By: #### 4 [id number] #### [facility] [address] [place] [address] Dr. Galen Meyers CBC AUTO DIFFon 04-17-2022 BASO # 0.0 103/ul Normal 0.0-0.1 [facility] Comment on above: Performed By: #### C BC #### [facility] [address] [place] [address] Dr. Galen Meyers Basophils/100 WBC (Bld) 0.5 % Normal 0.2-2.0 [facility] Comment on above: Performed By: #### C BC #### [facility] [address] [place] [address] Dr. Galen Meyers EO # 0.2 103/ul Normal 0.0-0.7 [facility] Comment on above: Performed By: #### C BC #### [facility] [address] [place] [address] Dr. Galen Meyers Eosinophils/100 WBC (Bld) 2.2 % Normal 0.9-7.0 [facility] Comment on above: Performed By: #### C BC #### [facility] [address] [place] [address] Dr. Galen Meyers Erythrocyte distribution width (RBC) [Ratio] 13.5 % Normal 11.0-15.0 [facility] Comment on above: Performed By: #### C BC #### [facility] [address] [place] [address] Dr. Galen Meyers Hematocrit (Bld) [Volume fraction] 38.3 % Normal 36.0-48.0 [facility] Comment on above: Performed By: #### C BC #### [facility] [address] [place] [address] Dr. Galen Meyers Hemoglobin (Bld) [Mass/Vol] 12.7 g/dL Normal 12.0-16.0 [facility] Comment on above: Performed By: #### C BC #### [facility] [address] [place] [address] Dr. Galen Meyers IG # 0.02 10e3/ul Normal 0.00-0.03 [facility] Comment on above: Performed By: #### C BC #### [facility] [address] [place] [address] Dr. Galen Meyers IG % 0.2 % Normal 0.0-0.5 [facility] Comment on above: Performed By: #### C BC #### [facility] [address] [place] [address] Dr. Galen Meyers LYMPH # 2.6 103/ul Normal 1.2-3.8 [facility] Comment on above: Performed By: #### C BC #### [facility] [address] [place] [address] Dr. Galen Meyers Lymphocytes/100 WBC (Bld) 31.3 % Normal 20.5-60.0 [facility] Comment on above: Performed By: #### C BC #### [facility] [address] [place] [address] Dr. Galen Meyers MANUAL DIFF REQ NO Normal [facility] Comment on above: Performed By: #### C BC #### [facility] [address] [place] [address] Dr. Galen Meyers MCH (RBC) [Entitic mass] 27.0 pg Normal 26.7-34.0 [facility] Comment on above: Performed By: #### C BC #### [facility] [address] [address] [address] Galen Meyers MCHC (RBC) [Mass/Vol] 33.2 g/dL Normal 29.9-35.2 [facility] Comment on above: Performed By: #### C BC #### [facility] [address] [address] [address] Galen Meyers MCV (RBC) [Entitic vol] 81.3 fL Normal 81.0-99.0 [facility] Comment on above: Performed By: #### C BC #### [facility] [address] [address] [address] Galen Meyers MONO # 0.4 103/ul Normal 0.3-0.8 [facility] Comment on above: Performed By: #### C BC #### [facility] [address] [place] [address] Dr. Galen Meyers Monocytes/100 WBC (Bld) 5.3 % Normal 1.7-12.0 [facility] Comment on above: Performed By: #### C BC #### [facility] [address] [place] [address] Dr. Galen Meyers NEUT # 5.0 103/ul Normal 1.4-6.5 [facility] Comment on above: Performed By: #### C BC #### [facility] [address] [place] [address] Dr. Galen Meyers Neutrophils/100 WBC (Bld) 60.5 % Normal 43.0-75.0 [facility] Comment on above: Performed By: #### C BC #### [facility] [address] [place] [address] Dr. Galen Meyers Platelet mean volume (Bld) [Entitic vol] 10.3 fL Normal 9.5-13.5 [facility] Comment on above: Performed By: #### C BC #### [facility] [address] [place] [address] Dr. Galen Meyers PLT 318 103/ul Normal 150-450 [facility] Comment on above: Performed By: #### C BC #### [facility] [address] [place] [address] Dr. Galen Meyers RBC 4.71 106/ul Normal 4.20-5.40 [facility] Comment on above: Performed By: #### C BC #### [facility] [address] [place] [address] Dr. Galen Meyers WBC 8.3 103/ul Normal 4.0-11.0 [facility] Comment on above: Performed By: #### C BC #### [facility] [address] [place] [address] Dr. Galen Meyers FREE T3on 04-17-2022 FREE T3 3.10 pg/mlL Normal 2.18-3.98 [facility] Comment on above: Performed By: #### C MP, TSH, FT3, LIPID #### [facility] [address] [place] [address] Dr. Galen Meyers FREE T4on 04-17-2022 Free T4 [Mass/Vol] 1.19 ng/dL Normal 0.76-1.46 [facility] Comment on above: Performed By: #### F T4 #### [facility] [address] [place] [address] Dr. Galen Meyers GLYCOHEMOGLOBIN A1Con 2021 ADA RECOMMENDATION SEE BELOW Normal [facility] Comment on above: Result Comment: ADA RECOMMENDED LIMIT 4.0 - 6.0 ADA THERAPEUTIC TARGET < 7.0 ACTION SUGGESTED > 7.0 Performed By: #### A 1C #### [facility] [address] [place] [address] Dr. Galen Meyers Glucose [Mass/Vol] 126 mg/dL Normal [facility] Comment on above: Performed By: #### A 1C #### [facility] [address] [place] [address] Dr. Galen Meyers HbA1c (Bld) [Mass fraction] 6.0 % Normal 4.5-6.2 [facility] Comment on above: Performed By: #### A 1C #### [facility] [address] [place] [address] Dr. Galen Meyers LIPID PROFILEon 04-17-2022 CHOL-HDL RATIO NORM SEE BELOW Normal [facility] Comment on above: Result Comment: 3.3 - 4.4 LOW RISK 4.4 - 7.1 AVERAGE RISK 7.1 - 11.0 MODERATE RISK >11.0 HIGH RISK Performed By: #### C MP, TSH, FT3, LIPID #### [facility] [address] [address] [address] Galen Meyers Cholesterol [Mass/Vol] 245 mg/dL Critically high <=200 [facility] Comment on above: Performed By: #### C MP, TSH, FT3, LIPID #### [facility] [address] [place] [address] Dr. Galen Meyers Cholesterol in HDL [Mass/Vol] 51 mg/dL Normal 40-60 [facility] Comment on above: Performed By: #### C MP, TSH, FT3, LIPID #### [facility] [address] [place] [address] Dr. Galen Meyers Cholesterol in LDL [Mass/Vol] 166.2 mg/dL Normal [facility] Comment on above: Performed By: #### C MP, TSH, FT3, LIPID #### [facility] [address] [place] [address] Dr. Galen Meyers Cholesterol.total/Ch olesterol in HDL [Mass ratio] 4.8 {ratio} Normal [facility] Comment on above: Performed By: #### C MP, TSH, FT3, LIPID #### [facility] [address] [place] [address] Dr. Galen Meyers HDL NORMAL > or = 60 mg/dl - LOW CARDIOVASCULAR RISK <40 mg/dl - HIGH CARDIOVASCULAR RISK Normal [facility] Comment on above: Performed By: #### C MP, TSH, FT3, LIPID #### [facility] [address] [place] [address] Dr. Galen Meyers LDL CALC NORMAL SEE BELOW Normal [facility] Comment on above: Result Comment: <100 mg/dl OPTIMAL 100 - 129 mg/dl NEAR OR ABOVE OPTIMAL 130 - 159 mg/dl BORDERLINE HIGH 160 - 189 mg/dl HIGH >190 mg/dl VERY HIGH Performed By: #### C MP, TSH, FT3, LIPID #### [facility] [address] [address] [address] Galen Meyers Triglyceride [Mass/Vol] 139 mg/dL Normal <=150 [facility] Comment on above: Performed By: #### C MP, TSH, FT3, LIPID #### [facility] [address] [address] [address] Galen Meyers VLDL CALC 27.8 mg/dL Normal [facility] Comment on above: Performed By: #### C MP, TSH, FT3, LIPID #### [facility] [address] [address] [address] Galen Meyers PROF 14(COMP METB)on 022 Albumin [Mass/Vol] 4.0 g/dL Normal 3.4-5.0 [facility] Comment on above: Performed By: #### C MP, TSH, FT3, LIPID #### [facility] [address] [address] [address] Galen Meyers Albumin/Globulin [Mass ratio] 1.1 {ratio} Normal [facility] Comment on above: Performed By: #### C MP, TSH, FT3, LIPID #### [facility] [address] [place] [address] Dr. Galen Meyers ALP [Catalytic activity/Vol] 122 U/L Critically high 46-116 [facility] Comment on above: Performed By: #### C MP, TSH, FT3, LIPID #### [facility] [address] [place] [address] Dr. Galen Meyers ALT [Catalytic activity/Vol] 34 U/L Normal 14-59 [facility] Comment on above: Performed By: #### C MP, TSH, FT3, LIPID #### [facility] [address] [address] [address] Galen Meyers Anion gap [Moles/Vol] 11.8 mmol/L Normal [facility] Comment on above: Performed By: #### C MP, TSH, FT3, LIPID #### [facility] [address] [address] [address] Galen Meyers AST [Catalytic activity/Vol] 17 U/L Normal 15-37 [facility] Comment on above: Performed By: #### C MP, TSH, FT3, LIPID #### [facility] [address] [place] [address] Dr. Galen Meyers Bilirubin [Mass/Vol] 0.3 mg/dL Normal 0.2-1.0 [facility] Comment on above: Performed By: #### C MP, TSH, FT3, LIPID #### [facility] [address] [place] [address] Dr. Galen Meyers Calcium [Mass/Vol] 9.4 mg/dL Normal 8.5-10.1 [facility] Comment on above: Performed By: #### C MP, TSH, FT3, LIPID #### [facility] [address] [place] [address] Dr. Galen Meyers Chloride [Moles/Vol] 102 mmol/L Normal 98-107 [facility] Comment on above: Performed By: #### C MP, TSH, FT3, LIPID #### [facility] [address] [place] [address] Dr. Galen Meyers CO2 [Moles/Vol] 29.0 mmol/L Normal 21.0-32.0 [facility] Comment on above: Performed By: #### C MP, TSH, FT3, LIPID #### [facility] [address] [place] [address] Dr. Galen Meyers Creatinine [Mass/Vol] 0.64 mg/dL Normal 0.55-1.02 [facility] Comment on above: Performed By: #### C MP, TSH, FT3, LIPID #### [facility] [address] [place] [address] Dr. Galen Meyers EGFR-AF UZBEK >60 Normal >=60 [facility] Comment on above: Performed By: #### C MP, TSH, FT3, LIPID #### [facility] [address] [place] [address] Dr. Galen Meyers EGFR-NON AF UZBEK >60 Normal >=60 [facility] Comment on above: Performed By: #### C MP, TSH, FT3, LIPID #### [facility] [address] [address] [address] Galen Meyers Globulin (S) [Mass/Vol] 3.6 g/dL Normal [facility] Comment on above: Performed By: #### C MP, TSH, FT3, LIPID #### [facility] [address] [address] [address] Galen Meyers Glucose [Mass/Vol] 118 mg/dL Critically high 74-106 [facility] Comment on above: Performed By: #### C MP, TSH, FT3, LIPID #### [facility] [address] [place] [address] Dr. Galen Meyers Potassium [Moles/Vol] 3.8 mmol/L Normal 3.5-5.1 [facility] Comment on above: Performed By: #### C MP, TSH, FT3, LIPID #### [facility] [address] [place] [address] Dr. Galen Meyers Protein [Mass/Vol] 7.6 g/dL Normal 6.4-8.2 [facility] Comment on above: Performed By: #### C MP, TSH, FT3, LIPID #### [facility] [address] [place] [address] Dr. Galen Meyers Sodium [Moles/Vol] 139 mmol/L Normal 136-145 [facility] Comment on above: Performed By: #### C MP, TSH, FT3, LIPID #### [facility] [address] [place] [address] Dr. Galen Meyers Urea nitrogen [Mass/Vol] 13.0 mg/dL Normal 7.0-18.0 [facility] Comment on above: Performed By: #### C MP, TSH, FT3, LIPID #### [facility] [address] [place] [address] Dr. Galen Meyers Urea nitrogen/Creatinine [Mass ratio] 20.3 mg/mg Normal [facility] Comment on above: Performed By: #### C MP, TSH, FT3, LIPID #### [facility] [address], [place] [address] Dr. Galen Meyers TSHon 04-17-2022 TSH 0.017 uIU/mL Critically low 0.358-3.740 [facility] Comment on above: Performed By: #### C MP, TSH, FT3, LIPID #### [facility] [address], [place] [address] Dr. Galen Meyers COVID/FLU RT-PCRon 2 SARS-CoV-2 (COVID-19) RNA RONNY+probe Ql (Unsp spec) Negative [facility] Other COVID/FLU RT-PCR Negative [facility] Me Other Quick Strepon 04-05-2022 S. 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 AMH also noted to be undetectable. Called patient to discuss- left VM. Encouraged her to call office to discuss and to schedule follow up visit to review options in more detail. Signatures Electronically signed by : Beena Russo MD; Feb 18 2019 4:59PM EST (Author) Normal [facility] ESTRADIOLon 02-16-2019 ESTRADIOL <20 Normal [facility] Comment on above: Result Comment: Estr adiol measurement is performed using the [employer] [place] Access Immunoassay. Estradiol testing is performed using a different test methodology at [facility] than other [facility]. Direct result comparison should only be made within the same method. REF VALUES FOLLICULAR PHASE 20-144 MID CYCLE 64-357 LUTEAL PHASE 56-214 POSTMENOPAUSE < 32 PREPUBERTY < 20 MALE 10-18Y < 20 ADULT MALE < 40 Performed By: #### E STRA #### [facility] [address] [place] [address] FOLLICLE STIM. HORMONEon FOLLICLE STIM. HORMONE 82.8 IU/L Normal [facility] Comment on above: Result Comment: Foll icle Stimulating Hormone [FSH] is performed using the [employer] [place] Access Immunoassay. FSH testing is performed using a different test methodology at [facility] than other [facility]. Direct result comparison should only be made within the same method. REF VALUES FOLLICULAR 2-12 MID-CYCLE 12-25 LUTEAL PHASE 2-12 MENOPAUSE 30-150 PREPUBERTY 50% ADULT ADULT MALE 2-10 INFANTS 0-1 Performed By: #### P MARCIAL #### [facility] [address] [place] [address] LUTEINIZING HORMONEon 2018 LUTEINIZING HORMONE 28.5 IU/L Normal [facility] Comment on above: Result Comment: Lute inizing Hormone [LH] is performed using the [employer] Access Immunoassay. LH testing is performed using a different test methodology at [facility] than [facility]. Direct result comparison should only be made within the same method. REF VALUES FOLLICULAR PHASE 1.5-10.0 MID-CYCLE 13.0-72.0 LUTEAL PHASE 0.5-13.0 MENOPAUSE 15.0-65.0 PREPUBERTY 0- 3.0 CHILDREN 0- 6.0 ADULT MALE 1.0- 9.0 Performed By: #### L H #### [facility] [address] [place] [address] PROGESTERONEon 02-16-2019 PROGESTERONE 0.5 ng/mL Normal [facility] Comment on above: Result Comment: Prog esterone is performed using the [employer] Access Immunoassay. Progesterone testing is performed using a different test methodology at [facility] than [facility]. Direct result comparison should only be made within the same method. REF VALUES MALE <0.2-0.8 FOLLICULAR PHASE <0.2-1.5 LUTEAL PHASE 7.4-15.4 POSTMENOPAUSAL <0.2-0.2 1ST TRIMESTER 12.0-84.0 2ND TRIMESTER 10.2-58.8 3RD TRIMESTER 46.5-160 Performed By: #### P MARCIAL #### [facility] [address] [place] [address] ESTRADIOLon 02-11-2019 ESTRADIOL <20 Normal [facility] Comment on above: Result Comment: Estr adiol measurement is performed using the [employer] [place] Access Immunoassay. Estradiol testing is performed using a different test methodology at [facility] than other [facility]. Direct result comparison should only be made within the same method. REF VALUES FOLLICULAR PHASE 20-144 MID CYCLE 64-357 LUTEAL PHASE 56-214 POSTMENOPAUSE < 32 PREPUBERTY < 20 MALE 10-18Y < 20 ADULT MALE < 40 Performed By: #### E STRA #### [facility] [address] [place] [address] LUTEINIZING HORMONEon 2018 LUTEINIZING HORMONE 18.9 IU/L Normal [facility] Comment on above: Result Comment: Lute inizing Hormone [LH] is performed using the [employer] [place] Access Immunoassay. LH testing is performed using a different test methodology at [facility] than [facility]. Direct result comparison should only be made within the same method. REF VALUES FOLLICULAR PHASE 1.5-10.0 MID-CYCLE 13.0-72.0 LUTEAL PHASE 0.5-13.0 MENOPAUSE 15.0-65.0 PREPUBERTY 0- 3.0 CHILDREN 0- 6.0 ADULT MALE 1.0- 9.0 Performed By: #### L H #### [facility] [address] [id number] PROGESTERONEon 02-11-2019 PROGESTERONE 0.1 ng/mL Normal [facility] Comment on above: Result Comment: Prog esterone is performed using the [employer] Access Immunoassay. Progesterone testing is performed using a different test methodology at [facility] than other [facility]. Direct result comparison should only be made within the same method. REF VALUES MALE <0.2-0.8 FOLLICULAR PHASE <0.2-1.5 LUTEAL PHASE 7.4-15.4 POSTMENOPAUSAL <0.2-0.2 1ST TRIMESTER 12.0-84.0 2ND TRIMESTER 10.2-58.8 3RD TRIMESTER 46.5-160 Performed By: #### P MARCIAL #### [facility] [address] [place] [address] TSH WITH REFLEX TO FREE T4 I F ABNORMALon 02-05-2019 TSH Qn 2.85 m[IU]/L Normal 0.44 - 3.98 [facility] Comment on above: Order Comment: TSH C ALLED TO [facility], FAXED TO , 02/05/2019 10:26 Result Comment: TSH testing is performed using different testing methodology at [facility] than at other [facility]. Direct result comparisons should only be made within the same method. . Patients receiving more than 5 mg/day of biotin may have interference in test results. A sample should be taken no sooner than eight hours after previous dose. Contact [phone] for additional information. TSH CALLED TO [facility], FAXED TO , 02/05/2019 10:26 Performed By: #### T HYDS #### [facility] [address] [place] [address] ESTRADIOLon 02-04-2019 ESTRADIOL 21 pg/mL Normal [facility] Comment on above: Result Comment: Estr adiol measurement is performed using the [employer] Access Immunoassay. Estradiol testing is performed using a different test methodology at [facility] than other [facility]. Direct result comparison should only be made within the same method. REF VALUES FOLLICULAR PHASE 20-144 MID CYCLE 64-357 LUTEAL PHASE 56-214 POSTMENOPAUSE < 32 PREPUBERTY < 20 MALE 10-18Y < 20 ADULT MALE < 40 Performed By: #### E STRA #### [facility] [address] [place] [address] LUTEINIZING HORMONEon 2018 LUTEINIZING HORMONE 10.9 IU/L Normal [facility] Comment on above: Result Comment: Lute inizing Hormone [LH] is performed using the [employer] [place] Access Immunoassay. LH testing is performed using a different test methodology at [facility] than other [facility]. Direct result comparison should only be made within the same method. REF VALUES FOLLICULAR PHASE 1.5-10.0 MID-CYCLE 13.0-72.0 LUTEAL PHASE 0.5-13.0 MENOPAUSE 15.0-65.0 PREPUBERTY 0- 3.0 CHILDREN 0- 6.0 ADULT MALE 1.0- 9.0 Performed By: #### L H #### [facility] [address] [place] [address] ESTRADIOLon 01-08-2019 ESTRADIOL 231 pg/mL Normal [facility] Comment on above: Result Comment: Estr adiol measurement is performed using the [employer] [place] Access Immunoassay. Estradiol testing is performed using a different test methodology at [facility] than other [facility]. Direct result comparison should only be made within the same method. REF VALUES FOLLICULAR PHASE 20-144 MID CYCLE 64-357 LUTEAL PHASE 56-214 POSTMENOPAUSE < 32 PREPUBERTY < 20 MALE 10-18Y < 20 ADULT MALE < 40 Performed By: #### E STRA #### [facility] [address] [place] [address] HCG,BETA-QUANTITATIVEon 08 HCG,BETA-QUANTITATIV E <2 Normal [facility] Comment on above: Result Comment: Low- level positive HCG results can be seen in early , in vera- or post-menopausal females due to normal pituitary HCG production, or with analytic interference. Repeat testing in 48-72 hours can aid in assessing for as results should double in this time period. FSH measurement is recommended in vera- or post-menopausal females as concurrent elevation of FSH can support pituitary production as the source of the HCG elevation. . Total HCG measurement is performed using the [employer] [place] Access Immunoassay which detects intact HCG and free beta HCG subunit. This test is not indicated for use as a tumor marker. HCG testing is performed using a different test methodology at [facility] than other [facility]. Direct result comparison should only be made within the same method. REF VALUES NON FEMALE <5 MALES <5 Performed By: #### H CGQU #### [facility] [address] [place] [address] PROGESTERONEon 01-08-2019 PROGESTERONE 0.6 ng/mL Normal [facility] Comment on above: Result Comment: Prog esterone is performed using the [employer] [place] Access Immunoassay. Progesterone testing is performed using a different test methodology at [facility] than other [facility]. Direct result comparison should only be made within the same method. 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 Patient tolerated procedure well. Patient instructed to start Prometrium 100 mg PV BID 3 days after IUI. All questions answered. 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 Discussed low AMH with patient. Discussed that can still consider Clomid/IUI as first treatment option. If not successful can discuss other options in the future. Plan: 1. Will have local AGRICULTURAL PRODUCTION ENGINEER remove IUD 2. Call with menses to start Clomid 100 mg CD4-8. Can choose how to monitor cycle for IUI. Prometrium for luteal support. Signatures Electronically signed by : Beena Russo MD; Oct 23 2018 5:44PM EST (Author) Normal [facility] ANTI MULLERIAN HORMONEon ANTI MULLERIAN HORMONE <0.015 Normal [facility] Comment on above: Result Comment: For assays employing antibodies, the possibility exists for interference by heterophile antibodies in the samples.1 1. Adis Copeland. Interferences in Immunoassays - still a threat. Clin. Chem. 2000; 46: 7128-9554. Reference Range: Females 36 - 40y: 0.42 - 8.34 Median 1.69 AMH concentrations of >= 1.06 ng/mL is correlated with a better response to ovarian stimulation, produced more retrievable oocytes and higher odds of live according to Sai et al. Fertility and Sterility. 2010: 94:9160-7385. The current AMH test method correlates with the study method with a slope of 0.94. Females at risk of ovarian hyperstimulation syndrome or polycystic ovarian syndrome (PCOS) may exhibit elevated serum AMH concentrations. AMH levels from PCOS patients may be 2 to 5 fold higher than age-appropriate reference interval values. Granulosa cell tumors of the ovary may secrete AMH along with other tumor markers. Elevated AMH is not specific for malignancy, and the assay should not be used exclusively to diagnose or exclude an AMH-secreting ovarian tumor. Performed By: #### A #### [facility] [address] [place] [id number] TESTOST,FREE AND TOTALon TESTOSTERONE TOT.LC/MS/MS 19 ng/dL Normal 2-45 [facility] Comment on above: Result Comment: For additional information, please refer to http://education.Puddle/faq/ [email or web address] (This link is being provided for informational/ educational purposes only.) This test was developed and its analytical performance characteristics have been determined by [employer] [place], [place]. It has not been cleared or approved by the U.S. Food and Drug Administration. This assay has been validated pursuant to the CLIA regulations and is used for clinical purposes. Performed By: #### T ESFT #### [facility] [address] [place], [place] TESTOSTERONE,FREE 2.1 pg/mL Normal 0.1-6.4 [facility] [place] Comment on above: Result Comment: This test was developed and its analytical performance characteristics have been determined by [employer] [place], [place]. It has not been cleared or approved by the U.S. Food and Drug Administration. This assay has been validated pursuant to the CLIA regulations and is used for clinical purposes. Performed By: #### T ESFT #### [facility] [address] [place], [place] PROLACTINon 10-10-2018 PROLACTIN 12.3 ug/L Normal 6.0 - 20.0 [facility] Comment on above: Performed By: #### P ROL #### [facility] [address] [place] [id number] THYROXINE,FREEon 10-10-2018 THYROXINE,FREE 1.74 ng/dL High 0.78 - 1.48 [facility] Comment on above: Result Comment: Thyr oxine Free testing is performed using different testing methodology at [facility] than at other [facility]. Direct result comparisons should only be made within the same method. . Patients receiving more than 5 mg/day of biotin may have interference in test results. A sample should be taken no sooner than eight hours after previous dose. Contact [phone] for additional information. Performed By: #### T 4FRE #### [facility] [address] [place] [address] TSH WITH REFLEX TO FREE T4 I F ABNORMALon 10-10-2018 TSH Qn 0.01 m[IU]/L Low 0.44 - 3.98 [facility] Comment on above: Result Comment: TSH testing is performed using different testing methodology at [facility] than at other [facility]. Direct result comparisons should only be made within the same method. . Patients receiving more than 5 mg/day of biotin may have interference in test results. A sample should be taken no sooner than eight hours after previous dose. Contact [phone] for additional information. Performed By: #### T HYDS #### [facility] [address] [place] [id number] AGRICULTURAL PRODUCTION ENGINEER - Office Visiton 09-18 AGRICULTURAL PRODUCTION ENGINEER - Office Visit Chief Complaint 37 year old patient being seen today at the request of Dr. Jessa Robb for Fertility Consultation. History of Present Illness Patient is a 37 year old woman who presents with a history of secondary infertility. Together 21 years 17 years OB Hx 1. 2003- full term, no complications 2. 2007- full term, no complications 3. 2009- C/S 36 weeks for placenta previa Patient tried Clomid x3-4 months Also tried letrozole x 3 months with no success On synthroid 125 mcg daily Had HSG- showed bilateral tubal patency After trying for 3 years, patient and decided to consider adoption and patient recently had Mirena IUD replaced, but now are considering fertility treatment options Endocrine/Infertilit y Hx Duration: 3 years Coital Activity/week: every other day Menses: Cycle length: Q28 days, LH kit would turn +CD12-14. However, cycles became irregular for a period of time in 2017 (did not get menses for up to 2 months a time). Went on OCPs to regulate x 2 months and then periods became regular again. Periods were also regular when on Clomid and letrozole. 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 Right tube did not fill initially but did eventually fill and spill with increased pressure. 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 Smoking: none Alcohol: occasional Drug use: none SA: none Genetic Hx: Ethnic background Patient: Partner: Genetic diseases in family: none defects in family: none Genetic screening performed previously: none Past Medical History History of anxiety (V11.8) (Z86.59) History of hypothyroidism (V12.29) (Z86.39) History of ovarian cyst (V13.29) (Z87.42) History of Rupture of ovary (620.8) (N83.8) History of Total placenta previa (641.10) (O44.00) Surgical History History of section History of Exploratory laparotomy For ruptured ovarian cyst History of Meniscus repair Family History Family history of malignant neoplasm of breast (V16.3) (Z80.3) Social History 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 Allergies No Known Drug Allergies Recorded By: Dayday Yo; 10/09/2018 11:23:18 AM Current Meds Levothyroxine Sodium 125 MCG Oral Tablet; Therapy: [id number] to Recorded Dispense: 0 Days ; #: Sufficient Tablet; Refill: 0; JANENE = N; Record; Last Updated By: Dayday Yo; 10/09/2018 11:23:18 AM 19 Oral Tablet; Therapy: [id number] to Recorded Dispense: 0 Days ; #: Sufficient Tablet; Refill: 0; JANENE = N; Record; Last Updated By: Dayday Yo; 10/09/2018 11:23:18 AM Venlafaxine HCl - 100 MG Oral Tablet; Therapy: [id number] to Recorded Dispense: 0 Days ; #: Sufficient Tablet; Refill: 0; JANENE = N; Record; Last Updated By: Dayday Yo; 10/09/2018 11:23:18 AM Vitals Vital Signs Recorded: 09Oct2018 11:19AM Heart Rate75 [id number] Fiszmzvyc71 Height5 ft 1 in Ktuazp821 lb BMI Eeosqtiyks91.86 BSA Calculated1.53 [id number] Gravida3 Para3 Pain Scale0 Results/Data Transvaginal ultrasound: The uterus is anteverted and measures 6.7 x 3.4 x 4.2 cm. The Mirena IUD is visualized in the fundus. 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 History of hypothyroidism (V12.29) (Z86.39) History of anxiety (V11.8) (Z86.59) Fertility testing (V26.21) (Z31.41) Orders Anti Mullerian Hormone; Status:Active; Requested for:09Oct2018; Perform:Lab Services - Lab To Draw (Non-Blood Test); Due:07Jan2019;Ordere d; For:Fertility testing; Ordered By:Beena Russo; Prolactin, Serum; Specimen Source:Blood (BLD); Status:Active; Requested for:09Oct2018; Perform:Lab Services - Lab To Draw (Blood Test); Due:07Jan2019;Ordere d; For:Fertility testing; Ordered By:Beena Russo; Testosterone Free + Total; Specimen Source:Blood (BLD); Status:Active; Requested for:09Oct2018; Perform:Lab Services - Lab To Draw (Blood Test); Due:07Jan2019;Ordere d; For:Fertility testing; Ordered By:Beena Russo; TSH WITH REFLEX TO FREE T4 IF ABNORMAL; Specimen Source:Blood (BLD); Status:Active; Requested for:09Oct2018; Perform:Lab Services - Lab To Draw (Blood Test); Due:07Jan2019;Ordere d; For:Fertility testing; Ordered By:Beena Russo; Tobacco Use Screening; Status:Complete; Done: 09Oct2018 Perform:Not Applicable;Ordered; For:SocHx: 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; Ordered By:Dayday Yo; Provider Impressions 37 yo with secondary infertility, HSG showing bilateral tubal patency, hx of C/S for placenta previa. Currently with Mirena IUD in place. History of irregular menses last year. We discussed causes of infertility including hormonal, egg quality issues, structural problems such as endometriosis, adhesions, or tubal problems, uterine factors such as polyps or fibroids, and sperm issues. Reviewed evaluation of such as well. We discussed methods for achieving in some detail including superovulation and IVF. Plan: [ ] HSG: get images to review [ ] AMH [ ] TSH, prolactin, testosterone [ ] Semen analysis--will do today [ ] Preconceptual screening including Rubella,Varicella, Blood type--defer today, get records [ ] Genetic Screen with AnTuTu--discussed, patient defers [ ] Take vitamins, vitamin D [ ] Discuss after workup complete. Discussed option of Clomid/IUI if all testing is WNL. Patient will need IUD removed prior to initiation of fertility treatments. Can use LH kits to time IUI. Appointment Duration:. 60 minutes; greater than half of the time was spent on counseling. Signatures Electronically signed by : Beena Russo MD; Oct 09 2018 12:46PM EST (Author) [facility] Vital Signs Date Time Vital Sign Value Performing Clinician Facility 04-05-2022 11:55-0500 Body height 154.94 cm Elizabeth Cabrera Other [facility] Other 04-05-2022 11:55-0500 Body mass index (BMI) [Ratio] 28.34 kg/m2 Elizabeth Cabrera Other [facility] Other 04-05-2022 11:55-0500 Body temperature 98.1 [degF] Elizabeth Cabrera Other [facility] Other 04-05-2022 11:55-0500 Body weight 68.04 kg Elizabeth Cabrera Other [facility] Other 04-05-2022 11:55-0500 Respiratory rate 18 /min Elizabeth Roseler Other [facility] Other 04-05-2022 11:55-0500 SaO2% (BldA) [Mass fraction] 90 % Elizabeth Roseler Other [facility] Other Encounters Encounter Date Encounter Type Care Provider Facility Start: 12-03-2023 End: 12-03-2023 ambulatory Maddison L Aki [place] Start: 12-03-2023 End: 12-03-2023 Patient encounter procedure Maddison L Aki [facility] Start: 12-03-2023 End: 12-03-2023 ambulatory Maddison L Aki Facility:[facility] [place] Start: 07-31-2023 End: 07-31-2023 ambulatory Maddison L Aki Facility:[facility] [place] Start: 06-07-2023 End: 06-07-2023 Lab Drop off Maddison L Aki [facility] Start: 06-07-2023 End: 06-07-2023 ambulatory Maddison L Aki [facility] Start: 05-29-2023 End: 05-29-2023 ambulatory Maddison L Aki Facility:[facility] [place] Start: 04-24-2023 End: 04-24-2023 Lab Drop off Maddison L Aki [facility] Start: 04-24-2023 End: 04-24-2023 ambulatory Maddison L Aki [facility] Start: 03-14-2023 End: 03-14-2023 Lab Drop off Maddison L Aki [facility] Start: 03-14-2023 End: 03-14-2023 ambulatory Maddison L Aki [facility] Start: 02-14-2023 End: 02-14-2023 ambulatory Maddison L Aki Facility:[facility] [place]o Start: 01-29-2023 End: 01-29-2023 Lab Drop off Maddison L Aki [facility] Start: 01-29-2023 End: 01-29-2023 ambulatory Maddison L Aki [facility] Start: 07-03-2022 End: 07-03-[address] JESSA ROBB . Facility: Start: 04-21-2022 Encounter for genera l adult medical examination without abnormal findings DR HIWOT BRADSHAW . [facility] Start: 04-17-2022 End: 04-18-[address] HIWOT BRADSHAW . Facility: Start: 04-17-2022 End: 04-18-2022 Encounter for general adult medical examination without abnormal findings DR HIWOT BRADSHAW . Facility: Start: 04-05-2022 End: 04-05-2022 ambulatory Elizabeth Cabrera Other [facility] Other Start: 04-05-2022 Office outpatient ne w 30 minutes Elizabeth Cabrera [facility] Procedures Date Procedure Procedure Detail Performing Clinician Start: 05-20-2021 Total abdominal hysterectomy Maddison Aki Start: 05-20-2020 Destructive procedure J gunnar Aki Comment on above: uterine section Maddisno Aki Comment on above: X1 Cyst of ovary (disorder) Oliviad maxwell Aki Structure of right k nee (body structure) Maddison Aki Plan of Treatment Date Care Activity Detail Author Start: 01-15-2024 ambulatory Ambulatory Facility:[facility] Immunizations Immunization Date Immunization Notes Care Provider Fa em 11-15-2018 tetanus toxoid, redu sam diphtheria toxoid, and acellular pertussis vaccine, adsorbed Elizabeth Cabrera Other [facility] Payers Date Payer Category Payer Unknown [id number] 2.16.84 [id number] 1980 Unknown [id number] 2.16.84 [id number] 1980 Unknown [id number] 2.16.8 40.1.798434.3.579.2. 1980 Unknown [id number] 2.16.8 40.1.475273.3.579.2. 1980 Unknown [id number] 2.16.8 40.1.254659.3.579.2. 1980 Unknown [id number] 2.16.8 40.1.484113.3.579.2. 1980 Unknown [id number] 2.16.8 40.1.846346.3.579.2. 1980 Unknown [id number] 2.16.8 40.1.544167.3.579.2. 1980 Unknown [id number] 2.16.8 40.1.559032.3.579.2. 1980 Unknown [id number] 2.16.8 40.1.767220.3.579.2.727 1980 Unknown [id number] 2.16.8 40.1.913828.3.579.2.727 1980 Unknown [id number] 2.16.8 40.1.611691.3.579.2.727 1980 Unknown [id number] 2.16.8 40.1.792548.3.579.2.727 1980 Unknown [id number] 2.16.8 40.1.542790.3.579.2.727 1980 Unknown [id number] 2.16.8 40.1.889648.3.579.2.727 1980 Unknown [id number] 2.16.8 40.1.259745.3.579.2.727 1959 Unknown [id number] 2.16. [id number] 1959 Unknown [id number] Social History Date Type Detail Facility Unknown if ever smoked [facility] Other Sex Assigned At [facility] Start: 01-29-2023 End: 12-03-2023 Tobacco smoking status Never smoked tobacco (finding) [facility] Tobacco smoking status Never [facility] Evaluation + Plan note 01-31-2023 Laboratory Note Date & Type Note Facility 01-31-2023 Evaluation + Plan note Future Scheduled TestsT3 Free 01/31/23Thyroid Stimulating Hormone 01/31/23Free T4 01/31/[address] [facility] Evaluation + Plan note 01-31-2023 Laboratory Note Date & Type Note Facility 01-31-2023 Evaluation + Plan note Future Scheduled TestsT3 Free 01/31/23Thyroid Stimulating Hormone 03/15/23Thyroid Stimulating Hormone 01/31/23Free T4 01/31/[address] [facility] Evaluation + Plan note 01-29-2023 Note Date & Type Note Facility 01-29-2023 Evaluation + Plan note Diagnostic Tests PendingT3 Free 01/29/[address] [facility] Evaluation note 04-05-2022 Note Date & Type Note Facility 04-05-2022 Evaluation note Encounter Date Diagnosis Assessment Notes Mar, Contact with and (suspected) exposure to other viral communicable diseases (ICD-10 - Z20.828) Mar, Viral URI (ICD-10 - J06.9) Advised patient that COVID/Influenza A/B PCR tests and rapid Strep test was negative today. Advised patient that will treat as viral URI. Supportive care as directed, increase fluids and rest, Tylenol/Motrin as directed, OTC cough/cold remedies as directed on packaging, cool mist humidifier, throat lozenges. Discussed infection control practices such as good hand washing and mask wearing. Patient to follow up with PCP if symptoms persist or worsen despite treatment. Immediate eval for SOB, difficulty, chest pain, fevers that do not break with antipyretic or any other concerning symptoms as reviewed on patient education handout. Patient verbalizes understanding and is agreeable to treatment plan. Patient left in stable condition Mar, Sore throat (ICD-10 - J02.9) [facility] Other Evaluation + Plan note Laboratory Note Date & Type Note Facility Evaluation + Plan note Future Appointments Appointment Date:01/15/2024 04:40:00 PM Scheduled Provider:Maddison Basurto Location:[facility] Appointment Type: Open Future Scheduled TestsT3 Free 01/31/23Thyroid Stimulating Hormone 03/15/23Thyroid Stimulating Hormone 01/31/23Free T4 01/31/[address] [facility] History general Narrative - Reported Note Date & Type Note Facility History general Narrative - Reported Type Medical History anxiety Medical History Hypothyroidism Surgical History EMERGENCY 2009 Surgical History APPENDECTOMY Surgical History hysterectomy 2021 Hospitalization History No Hospitalization histo ry information [facility] Other Hospital course Narrative Note Date & Type Note Facility Hospital course Narrative No data available for this section [facility] Hospital Discharge instructions Note Date & Type Note Facility Hospital Discharge instructions No data available for this section [facility] Progress note Note Date & Type Note Facility Progress note No data available for this section [facility] Summary Purpose Family History No Family History Records FoundNo Family History Records FoundNo Family History Records FoundNo Family History Records Found No data available for this section No data available for this section No data available for this section No data available for this section No Family History Records Found Advance Directives No Advanced Directives Records FoundNo Advanced Directives Records FoundNo Advanced Directives Records FoundNo Advanced Directives Records FoundNo Advanced Directives Records Found Additional Source Comments INFORMATION SOURCE (unrecogn ized section and content) DATE CREATED AUTHOR 02/17/2019 [facility] DATE CREATED AUTHOR AUTHOR'S ORGANIZ ATION 02/19/2019 [employer] DATE CREATED AUTHOR AUTHOR'S ORGANIZ ATION 02/25/2019 [facility] DATE CREATED AUTHOR AUTHOR'S ORGANIZ ATION 10/03/2022 [facility] DATE CREATED AUTHOR AUTHOR'S ORGANIZ ATION 12/10/2023 [facility] REASON FOR VISIT (unrecogniz ed section and content) LOSS OF VOICE, H/A, COUGH, S ORE THROAT Patient Care team informatio n (unrecognized section and content) Personnel Name: Maddison Basurto Address: Address: [address] [place] [address]- Personnel Name: Aki BECKER Maddison L Address: Address: [address] [place] [address]- Personnel Name: Akiab BECKER Maddison Dinorah Address: Address: [address] [place] [address]- Personnel Name: Akiab BECKER Maddison L Address: Address: [address] [place] [address]- Personnel Name: Akiab BECKER Maddison Dinorah Address: Address: [address] [place] [address]- FOR RECORDS PERTAINING TO PATIENTS WHO ARE OR HAVE BEEN ENROLLED IN A CHEMICAL DEPENDENCY/SUBSTANCEABUSE PROGRAM, SOME INFORMATION MAY BE OMITTED. This clinical summary was aggregated from multiple sources. Caution should be exercised in using it in the provision of clinical care. This summary normalizes information from multiple sources, and as a consequence, information in this document may materially change the coding, format and clinical context of patient data. In addition, data may be omitted in some cases. CLINICAL DECISIONS SHOULD BE BASED ON THE PRIMARY CLINICAL RECORDS. [facility] [employer] provides no warranty or guarantee of the accuracy or completeness of information in this document.
== END 2023-12-25 21:37 | disposition home or self-care (01) ==
LOC: LAB 21:36
PROVIDERS: Visit Provider Physician Assistant
DX: Z01.419 Encounter for gynecological examination (general) (routine) without abnormal findings (principal)
CPT/HCPCS: 87624; 88175

== ENCOUNTER 2024-12-28 20:22 | Outpatient (REF) | payer OTHER, SELFPAY ==
--- OUTSIDE RECORDS SUMMARY | 2024-12-28 20:41 | XMS_ITS | CCD ---
Author Organization [facility] Care Team Providers Care Telecasting Technician Name Role Phone Elizabeth Cabrera Unavailable MAXIMO ., DR HIWOT Llamas Consulting Unavailable MARSH ., DR HIWOT Llamas Attending Unavailable MARSH ., DR HIWOT [place]lam[place] Admitting Unavailable MARSH ., DR HIWOT Llamas Primary Care Unavailable ANGEL ., DR GERMAIN Admitting Unavailable ANGEL ., DR GERMAIN Consulting Unavailable ANGEL ., DR GERMAIN Attending Unavailable MARSH ., DR HIWOT Llamas Primary Care Unavailable Aki, Maddison Copeland Primary Care Physician FELICIA HIGH Attending Unavailable Aki, MANAGER E COMMERCE Maddison L Attending Unavailable Aki, MANAGER E COMMERCE Maddison L Attending Unavailable Aki, MANAGER E COMMERCE Maddison L Attending Unavailable Aki, MANAGER E COMMERCE Maddison L Attending Unavailable Aki, MANAGER E COMMERCE Maddison L Attending Unavailable Aki, MANAGER E COMMERCE Maddison L Attending Unavailable Aki, MANAGER E COMMERCE Maddison L Attending Unavailable Aki, MANAGER E COMMERCE Maddison L Attending Unavailable Aki, MANAGER E COMMERCE Maddison L Admitting Unavailable Aki, MANAGER E COMMERCE Maddison L Attending Unavailable Aki, MANAGER E COMMERCE Maddison L Admitting Unavailable Aki, MANAGER E COMMERCE Maddison L Admitting Unavailable Aki, MANAGER E COMMERCE Maddison L Attending Unavailable Aki, MANAGER E COMMERCE Maddison L Admitting Unavailable Aki, MANAGER E COMMERCE Maddison L Attending Unavailable Aki, MANAGER E COMMERCE Maddison L Attending Unavailable Aki, MANAGER E COMMERCE Maddison L Admitting Unavailable Aki, MANAGER E COMMERCE Maddison L Attending Unavailable Aki, Maddison L Admitting Unavailable Aki, Maddison L Attending Unavailable Aki, Maddison L Attending Unavailable Aki, Maddison L Admitting Unavailable MIRACLE, GENESIS A Attending Unavailable Aki, MANAGER E COMMERCE Maddison L Admitting Unavailable Aki, MANAGER E COMMERCE Maddison L Attending Unavailable Aki, MANAGER E COMMERCE Maddison L Attending Unavailable Unavailable Primary Care Provider Unavailabl e Allergies Allergy Classification Reported Allergen(s) Allergy Type Date of Onset Reaction(s) Facility (1 source) Megestrol Drug Allergy 1 [facility] Repository (3 sources) No Known Medication Allergies; Translations: [No Known Medication Allergies] Propensity to adverse reactions (disorder) [facility] Repository (3 sources) Megestrol Drug Allergy 4 [facility] Work Phone: Medications Current Medications Medication Drug Class(es) Dates Sig (Normalized) Sig (Original) busPIRone hydrochloride 10 mg oral tablet (1 source) Start: 01-29-2023 take 1 tablet by mouth three times daily as needed for anxiety busPIRone 10 mg Tab 10 mg = 1 tab(s), Oral, TID, PRN Anxiety, # 90 tab(s), Refills(s) 0, Pharmacy: [facility]/pharmacy #[id number], 155, cm, 01/29/23 10:36:00 EDT, Height/Length Dosing, 64.5, kg, 01/29/23 10:36:00 EDT, Weight Dosing Start Date: 01/29/23 Status: Ordered cephalexin 500 mg oral capsule (2 sources) Cephalosporin Antibacterial Start: 02-14-2023 take 1 capsule by mouth every twelve hours cephalexin 500 mg Cap 500 mg = 1 cap(s), Oral, q12hr, # 20 cap(s), Refills(s) 0, Pharmacy: [facility]/pharmacy #[id number], 155, cm, 02/14/23 8:53:00 EDT, Height/Length Dosing, 66.8, kg, 02/14/23 8:53:00 EDT, Weight Dosing Start Date: 02/14/23 Status: Ordered cyclobenzaprine hydrochloride 7.5 mg oral tablet (2 sources) Muscle Relaxant Start: 12-03-2023 take 1 tablet by mouth twice daily as needed for muscle spasms cyclobenzaprine 7.5 mg oral tablet 7.5 mg = 1 tab(s), Oral, BID, PRN for spasm, # 30 tab(s), Refills(s) 0, Pharmacy: [facility]/pharmacy #[id number], 155, cm, 12/03/23 9:08:00 EDT, Height/Length Dosing, 65.5, kg, 12/03/23 9:08:00 EDT, Weight Dosing Start Date: 12/03/23 Status: Ordered 168 hr estradiol 0.87064 mg/hr transdermal system (2 sources) Estrogen Start: 12-28-2024 End: 12-28-2025 estradiol (Climara) 0.05 MG/24HR Indications: H/O: hysterectomy , Hormone disorder Place 1 patch over 7 days on the skin 1 (one) time per week 12 patch 3 12/28/2024 12/28/2025 Active levothyroxine sodium 0.088 mg oral tablet (10 sources) l-Thyroxine Start: 12-17-2023 take 1 tablet by mouth once daily levothyroxine 88 mcg (0.088 mg) Tab See Instructions, TAKE 1 TABLET BY MOUTH EVERY DAY, # 30 tab(s), Refills(s) 5, Pharmacy: [facility] STORE [id number], 155, cm, 12/03/23 9:08:00 EDT, Height/Length Dosing, 65.5, kg, 12/03/23 9:08:00 EDT, Weight Dosing Start Date: 12/17/23 Status: Ordered Start: 06-10-2023 take 1 tablet by sven th once daily levothyroxine 88 mcg (0.088 mg) Tab 88 mcg = 1 tab(s), Oral, Daily, # 90 tab(s), Refills(s) 1, [id number], cm, 05/29/23 15:46:00 EST, Height/Length Dosing, 67.8, kg, 05/29/23 15:46:00 EST, Weight Dosing Start Date: 06/10/23 Status: Ordered Start: 03-15-2023 take 1 tablet by sven th once daily levothyroxine 88 mcg (0.088 mg) Tab 88 mcg = 1 tab(s), Oral, Daily, # 30 tab(s), Refills(s) 1, [id number], 155, cm, 02/14/23 8:53:00 EDT, Height/Length Dosing, 66.8, kg, 02/14/23 8:53:00 EDT, Weight Dosing Start Date: 03/15/23 Status: Ordered Start: 02-27-2023 take 1 tablet by sven th once daily levothyroxine (Synthroid, Levoxyl) 112 MCG tablet Take 112 mcg by mouth Daily 02/27/2023 Active Start: 01-31-2023 take 1 capsule by mo [facility] once daily levothyroxine 112 mcg (0.112 mg) oral capsule 112 mcg = 1 cap(s), Oral, Daily, # 30 cap(s), Refills(s) 1, [id number], 155, cm, 01/29/23 10:36:00 EDT, Height/Length Dosing, 64.5, kg, 01/29/23 10:36:00 EDT, Weight Dosing Start Date: 01/31/23 Status: Ordered Start: 09-12-2022 take 1 tablet by [facility] once daily levothyroxine 125 mcg (0.125 mg) Tab 125 mcg = 1 tab(s), Oral, Daily, # 90 tab(s), Refills(s) 3, [id number] Start Date: 09/12/22 Status: Ordered Levothyroxine So dium Active meloxicam 15 mg oral tablet (5 sources) Nonsteroidal Anti-inflammatory Drug Start: 12-03-2023 meloxicam (Mobic) 15 MG tablet Take 15 mg by mouth 12/03/2023 Active methylPREDNISolone 4 mg oral tablet (1 source) Corticosteroid Start: 12-03-2023 End: 12-09-2023 Medrol 4 mg Tab = 1 packet(s), Oral, As Directed, as directed on package labeling, X 6 day(s), # 21 tab(s), Refills(s) 0, Pharmacy: [facility]/pharmacy #[id number], 155, cm, 12/03/23 9:08:00 EDT, Height/Length Dosing, 65.5, kg, 12/03/23 9:08:00 EDT, Weight Dosing Start Date: 12/03/23 Stop Date: 12/09/23 Status: Ordered progesterone 100 mg oral capsule (2 sources) Progesterone Start: 12-28-2024 End: 12-28-2025 take 1 capsule by mouth once daily progesterone (Prometrium) 100 MG capsule Indications: H/O: hysterectomy , Hormone disorder Take 1 capsule (100 mg) by mouth Daily 30 capsule 11 12/28/2024 12/28/2025 Active QUEtiapine 25 mg oral tablet (7 sources) Atypical Antipsychotic Start: 10-15-2023 take 1 tablet by mouth once daily quetiapine 25 mg Tab 25 mg = 1 tab(s), Oral, Daily, # 90 tab(s), Refills(s) 1, [id number], [facility], cm, 05/29/23 15:46:00 EST, Height/Length Dosing, 67.8, kg, 05/29/23 15:46:00 EST, Weight Dosing Start Date: 10/15/23 Status: Ordered Start: 04-22-2023 take 1 tablet by sven th once daily quetiapine 25 mg Tab 25 mg = 1 tab(s), Oral, Daily, # 90 tab(s), Refills(s) 1, [id number], [facility], cm, 02/14/23 8:53:00 EDT, Height/Length Dosing, 66.8, kg, 02/14/23 8:53:00 EDT, Weight Dosing Start Date: 04/22/23 Status: Ordered Start: 09-14-2022 take 1 tablet by sven th once daily quetiapine 25 mg Tab 25 mg = 1 tab(s), Oral, Daily, # 90 tab(s), Refills(s) 0, [id number], 155, cm, 01/29/23 10:36:00 EDT, Height/Length Dosing, 64.5, kg, 01/29/23 10:36:00 EDT, Weight Dosing Start Date: 01/29/23 Status: Ordered venlafaxine 100 mg oral tablet (8 sources) Serotonin and Norepinephrine Reuptake Inhibitor Start: 12-18-2023 take 1 tablet by mouth once daily venlafaxine 100 mg Tab See Instructions, TAKE 1 TABLET BY MOUTH EVERY DAY, # 30 tab(s), Refills(s) 11, Pharmacy: [facility] STORE [id number], 155, cm, 12/03/23 9:08:00 EDT, Height/Length Dosing, 65.5, kg, 12/03/23 9:08:00 EDT, Weight Dosing Start Date: 12/18/23 Status: Ordered Start: 09-14-2022 take 1 tablet by sven th once daily venlafaxine 100 mg Tab 100 mg = 1 tab(s), Oral, Daily, TAKE 1 TABLET BY MOUTH EVERY DAY, # 90 tab(s), Refills(s) 3, Pharmacy: [facility]/pharmacy #[id number], 155, cm, 01/29/23 10:36:00 EDT, Height/Length Dosing, 64.5, kg, 01/29/23 10:36:00 EDT, Weight Dosing Start Date: 01/29/23 Status: Ordered Venlafaxine HCl Active Completed/Discontinued Medications Medication Drug Class(es) Dates Sig (Normalized) Sig (Original) metFORMIN hydrochloride 500 mg oral tablet (12 sources) Biguanide Start: 09-14-2022 End: 03-28-2025 metFORMIN (Glucophage) 500 MG tablet Take 500 mg by mouth 01/29/2023 12/28/2024 Discontinued (Reorder) Problems Problem Classification Problem Date Documented Da te Episodic/Chronic Anxiety disorders (7 sources) Anxiety 01-29-2023 Chronic Immunizations and screening for infectious disease (2 sources) Contact with and (suspected) exposure to other viral communicable diseases; Translations: [Contact with and (suspected) exposure to other viral communicable diseases] Episodic Lymphadenitis (6 sources) Lymphadenopathy 02-14-2023 Episodic Nausea and vomiting (1 source) Vomiting; Translations: [Vomiting, unspecified] Episodic Other endocrine disorders (2 sources) Disorder of endocrine system; Translations: [Endocrine disorder, unspecified] 12-28-2024 Episodic Other gastrointestinal disorders (1 source) Irritable bowel syndrome; Translations: [Irritable bowel syndrome without diarrhea] Chronic Other gastrointestinal disorders (1 source) Diarrhea; Translations: [Diarrhea, unspecified] Episodic Other screening for suspected conditions (not mental disorders or infectious disease) (6 sources) Encounter for screening for malignant neoplasm of cervix; Translations: [Patient encounter status] Onset: 07-03-2022 Episodic Other upper respiratory disease (6 sources) Nasal sinus problem 02-14-2023 Episodic Other upper respiratory infections (3 sources) Sore throat symptom; Translations: [Acute pharyngitis, unspecified] Episodic Ovarian cyst (7 sources) Cyst of ovary 09-14-2022 Episodic Residual codes; unclassified (2 sources) Hepatitis B screening required 01-15-2024 Episodic Spondylosis; intervertebral disc disorders; other back problems (2 sources) Degeneration of intervertebral disc 01-15-2024 Chronic Spondylosis; intervertebral disc disorders; other back problems (3 sources) Low back pain 12-03-2023 Episodic Thyroid disorders (7 sources) 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 continue antibiotics I called in. Is she feeling any better? Results: Date Result Type Ind Result Name 10/08/2024 15:40 EDT MBO POS Urine Culture understands, and she said her frequency is better but she is still having right side flank pain, she said that if this is not better when she finishes her abx she will make an appt for this Normal [facility] Reminders Reminders - From: Maddison Basurto To: [facility] - Clinical; Sent: 10/13/2024 08:10:35 EDT Show up: 10/13/2024 08:10:00 EDT Subject: Ambulatory Reminder Due Date/Time: 10/14/2024 08:09:00 EDT urine culture was positive for e coli. continue antibiotics I called in. Is she feeling any better? Results: Date Result Type Ind Result Name 10/08/2024 15:40 EDT MBO POS Urine Culture Normal [facility] C Urineon 10-11-2024 Bacteria identified Cx Nom (U) Microbiology PROCEDURE: Urine Culture [R1] SOURCE: U CleanCatch BODY SITE: COLLECTED DATE/TIME: 10/08/2024 15:40 EDT RECEIVED DATE/TIME: 10/09/2024 17:04 EDT START DATE/TIME: 10/09/2024 17:04 EDT FREE TEXT SOURCE: Maddison Basurto, Maddison Copeland FINAL REPORTS Final Report [] Verified Date/Time: 10/11/2024 07:21 EDT 50,000 cfu/ml Escherichia coli SUSCEPTIBILITY RESULTS LEGEND: S=Susceptible, N/R=Not Reported, Blank=Data not available, or drug not advisable or tested, I=Intermediate, ESBL=Extended spectrum beta-lactamase, R=Resistant, TFG=Thymidine-depend ent strain, DILMA=Beta-lactamase positive, VADIM=mcg/m;(mg/L), S*=Predicted susceptible interp, R*=Predicted resistant interp EC Antibiotic VADIM Dilutn VADIM Interp Ampicillin >16 R Ampicillin/ >16/8 R Sulbactam Aztreonam <=4 S Cefazolin 16 I Cefepime <=2 S Ceftazidime <=1 S Ceftazidime/ <=8 S Avibactam Ceftriaxone <=1 S Cefuroxime <=4 S Ciprofloxacin <=0.25 S Ertapenem <=0.5 S Gentamicin <=2 S Levofloxacin <=0.5 S Meropenem <=1 S Nitrofurantoin <=32 S Piperacillin/ <=8 S Tazobactam Tetracycline <=4 S Tobramycin <=2 S Trimethoprim/ <=2/38 S Sulfa Performing Locations R1: This test was performed at: [facility], [address] [place] [address], [id number] , [place], Normal [facility] Comment on above: Performed By: #### [id number] #### [facility] [address] [place] [id number] Ambulatory Visit Summaryon 0 10-08-2024 Ambulatory Visit Summary Ambulatory Visit Summary GALE SOSA :1980 Visit Date:10/08/2024 Ambulatory Visit Instructions Your Diagnosis Urinary tract infection Hematuria BMI 28.0-28.9,adult Non-smoker Frequency of urination Your Care Team Attending Physician - Maddison Basurto Primary Care Physician - Maddison Basurto This Is Your Medications List ciprofloxacin (Cipro 500 mg Tab) cyclobenzaprine (cyclobenzaprine 7.5 mg oral tablet) levothyroxine (levothyroxine 88 mcg (0.088 mg) Tab) meloxicam (meloxicam 15 mg Tab) metformin (metformin 500 mg Tab) phenazopyridine (Pyridium 200 mg Tab) quetiapine (quetiapine 25 mg Tab) venlafaxine (venlafaxine 100 mg Tab) Procedures Performed AZEEM - Total abdominal hysterectomy (2021), Ablation (2020), section, Ovarian cyst, Right knee. Discharge Vitals Heart Rate (Peripheral) 68 Respiratory Rate 18 Blood Pressure 110/78 Height 155.0 cm Height 61 in Medications What How Much When Why Instructions New ciprofloxacin (Cipro 500 mg Tab) 1 Tablets By Mouth Every 12 hours Urinary tract infection Hematuria BMI 28.0-28.9,adult Non-smoker Duration: 7 Days Pickup at [facility]/pharmacy #[id number] New phenazopyridine (Pyridium 200 mg Tab) 1 Tablets By Mouth 3 times a day Urinary tract infection Hematuria BMI 28.0-28.9,adult Non-smoker Duration: 7 Days Pickup at [facility]/pharmacy #[id number] Unchanged cyclobenzaprine (cyclobenzaprine 7.5 mg oral tablet) 1 Tablets By Mouth 2 times a day as needed for for spasm Low back pain Non-smoker BMI 27.0-27.9,adult Unchanged levothyroxine (levothyroxine 88 mcg (0.088 mg) Tab) See instructions TAKE 1 TABLET BY MOUTH EVERY DAY Unchanged meloxicam (meloxicam 15 mg Tab) See instructions TAKE 1 TABLET BY MOUTH EVERY DAY Unchanged metformin (metformin 500 mg Tab) 1 Tablets By Mouth Every day Unchanged quetiapine (quetiapine 25 mg Tab) See instructions TAKE 1 TABLET BY MOUTH EVERY DAY Unchanged venlafaxine (venlafaxine 100 mg Tab) See instructions TAKE 1 TABLET BY MOUTH EVERY DAY Pharmacy Information [facility]/pharmacy #[id number]: [address], [place] [id number] [phone] Allergies No Known Medication Allergies Problems Ongoing - Any problem that you are currently receiving treatment for. Anxiety Hailee's disease Hematuria Low back pain Multilevel degenerative disc disease Need for hepatitis B screening test Ovarian cyst Pre-employment examination Sinus pressure Swollen lymph nodes Urinary tract infection Wellness examination Patient Survey You may receive a survey via text or e-mail asking about your office visit. Please share your experience with us by completing your survey. We appreciate your feedback and thank you for choosing us for your care. Normal [facility] Family Medicine Office/Clini c Noteon 10-08-2024 Family Medicine Office/Clinic Note Family Medicine Office/Clinic Note HPI Staff Gale is a 43 year old female presenting for acute visit Dysuria: Onset: 1 day ago Symptoms: bladder feels full, blood in urine OTC used: Last UTI: 2024 Hx of kidney stones: no UA in office documented in chart History of Present Illness UTI symptoms Review of Systems PHQ Score Initial Depression Screen Score: 0 SCORE Physical Exam Vitals & Measurements HR: 68(Peripheral) RR: 18 BP: 110/78 SpO2: 98% HT: 61 in HT: 155.0 cm General: alert, no acute distress ENMT: oral mucosa moist, no pharyngeal erythema or exudate Cardiovascular: regular rate and rhythm, normal peripheral perfusion Respiratory: Lungs CTA, respirations non labored Extremities: no deformity, no trauma Neurological: oriented x 4, LOC appropriate for age, CN II-XII intact, motor strength equal & normal bilaterally, speech normal Assessment/Plan 1. Urinary tract infection (N39.0: Urinary tract infection, site not specified) pt c/o urinary frequency. and incomplete emptying. sending for culture. cipro and pyridium sent in Ordered: ciprofloxacin, 500 mg = 1 tab(s), Oral, q12hr, X 7 day(s), # 14 tab(s), Refills(s) 0, [id number], cm, 10/08/24 15:35:00 EDT, Height/Length Dosing, 68.2, kg, 09/07/24 9:06:00 EDT, Weight Dosing phenazopyridine, 200 mg = 1 tab(s), Oral, TID, X 7 day(s), # 21 tab(s), Refills(s) 0, [id number], 155, cm, 10/08/24 15:35:00 EDT, Height/Length Dosing, 68.2, kg, 09/07/24 9:06:00 EDT, Weight Dosing 2. Hematuria (R31.9: Hematuria, unspecified) large blood noted on u/.a will send for culture Ordered: ciprofloxacin, 500 mg = 1 tab(s), Oral, q12hr, X 7 day(s), # 14 tab(s), Refills(s) 0, [id number], 155, cm, 10/08/24 15:35:00 EDT, Height/Length Dosing, 68.2, kg, 09/07/24 9:06:00 EDT, Weight Dosing phenazopyridine, 200 mg = 1 tab(s), Oral, TID, X 7 day(s), # 21 tab(s), Refills(s) 0, [id number], 155, cm, 10/08/24 15:35:00 EDT, Height/Length Dosing, 68.2, kg, 09/07/24 9:06:00 EDT, Weight Dosing 3. BMI 28.0-28.9,adult (Z68.28: Body mass index [BMI] 28.0-28.9, adult) BMI education Ordered: ciprofloxacin, 500 mg = 1 tab(s), Oral, q12hr, X 7 day(s), # 14 tab(s), Refills(s) 0, [id number], 155, cm, 10/08/24 15:35:00 EDT, Height/Length Dosing, 68.2, kg, 09/07/24 9:06:00 EDT, Weight Dosing phenazopyridine, 200 mg = 1 tab(s), Oral, TID, X 7 day(s), # 21 tab(s), Refills(s) 0, [id number], 155, cm, 10/08/24 15:35:00 EDT, Height/Length Dosing, 68.2, kg, 09/07/24 9:06:00 EDT, Weight Dosing 4. Non-smoker (Z78.9: Other specified health status) continue not smoking Ordered: ciprofloxacin, 500 mg = 1 tab(s), Oral, q12hr, X 7 day(s), # 14 tab(s), Refills(s) 0, [id number], 155, cm, 10/08/24 15:35:00 EDT, Height/Length Dosing, 68.2, kg, 09/07/24 9:06:00 EDT, Weight Dosing phenazopyridine, 200 mg = 1 tab(s), Oral, TID, X 7 day(s), # 21 tab(s), Refills(s) 0, [id number], 155, cm, 10/08/24 15:35:00 EDT, Height/Length Dosing, 68.2, kg, 09/07/24 9:06:00 EDT, Weight Dosing Frequency of urination (R35.0: Frequency of micturition) u/a positive will send for culture Ordered: Urine Culture Urnls Dip Stick Auto w/o Microscopy POC [id number] Follow-up No qualifying data available Problem List/Past Medical History Ongoing Anxiety Hailee's disease Hematuria Low back pain Multilevel degenerative disc disease Need for hepatitis B screening test Ovarian cyst Pre-employment examination Sinus pressure Swollen lymph nodes Urinary tract infection Wellness examination Historical No qualifying data Procedure/Surgical History AZEEM - Total abdominal hysterectomy (2021), Ablation (2020), section, Ovarian cyst, Right knee. Medications Cipro 500 mg Tab, 500 mg= 1 tab(s), Oral, q12hr cyclobenzaprine 7.5 mg oral tablet, 7.5 mg= 1 tab(s), Oral, BID, PRN levothyroxine 88 mcg (0.088 mg) Tab, See Instructions meloxicam 15 mg Tab, See Instructions metformin 500 mg Tab, 500 mg= 1 tab(s), Oral, Daily, 3 refills Pyridium 200 mg Tab, 200 mg= 1 tab(s), Oral, TID quetiapine 25 mg Tab, See Instructions venlafaxine 100 mg Tab, See Instructions Allergies No Known Medication Allergies Social History Alcohol Current. girly drink margaritta. 1-2 times per week., 09/07/2024 Substance Abuse Never., 09/07/2024 Tobacco Never (less than 100 in lifetime) Tobacco Use:., 09/07/2024 Immunizations Vaccine Date Status diphtheria/pertussis , acel/tetanus adult 11/15/2018 Recorded Lab Results Ambulatory Point of Care Results Bilirubin Urine Dipstick: Negative (10/08/24 15:38:00) Blood Urine Dipstick: 2+ Moderate (10/08/24 15:38:00) Glucose Urine Dipstick: Negative (10/08/24 15:38:00) Ketones Urine Dipstick: Negative (10/08/24 15:38:00) Leukocytes Urine Dipstick: 1+ Small (10/08/24 15:38:00) Nitrite Urine Dipstick: (more content not included)... Normal [facility] Comment on above: Result Comment: Elec tronically Signed By: Maddison Basurto\.br\Date and Time Signed: 10/08/24 15:50 EDT C Urineon 09-09-2024 Bacteria identified Cx Nom (U) Microbiology PROCEDURE: Urine Culture [R1] SOURCE: U CleanCatch BODY SITE: COLLECTED DATE/TIME: 09/07/2024 09:24 EDT RECEIVED DATE/TIME: 09/07/2024 17:37 EDT START DATE/TIME: 09/07/2024 17:37 EDT FREE TEXT SOURCE: GENESIS RAUSCH CNP, CNP, GENESIS Bettencourt FINAL REPORTS Final Report [] Verified Date/Time: 09/09/2024 10:22 EDT >100,000 cfu/ml Escherichia coli SUSCEPTIBILITY RESULTS LEGEND: S=Susceptible, N/R=Not Reported, Blank=Data not available, or drug not advisable or tested, I=Intermediate, ESBL=Extended spectrum beta-lactamase, R=Resistant, TFG=Thymidine-depend ent strain, DILMA=Beta-lactamase positive, VADIM=mcg/m;(mg/L), S*=Predicted susceptible interp, R*=Predicted resistant interp EC Antibiotic VADIM Dilutn VADIM Interp Ampicillin >16 R Ampicillin/ >16/8 R Sulbactam Aztreonam <=4 S Cefazolin 8 S Cefepime <=2 S Ceftazidime <=1 S Ceftazidime/ <=8 S Avibactam Ceftriaxone <=1 S Cefuroxime <=4 S Ciprofloxacin <=0.25 S Ertapenem <=0.5 S Gentamicin <=2 S Levofloxacin <=0.5 S Meropenem <=1 S Nitrofurantoin <=32 S Piperacillin/ <=8 S Tazobactam Tetracycline <=4 S Tobramycin <=2 S Trimethoprim/ <=2/38 S Sulfa Performing Locations R1: This test was performed at: [facility], [address] [place] [address], [id number] , , [facility] Comment on above: Performed By: #### [id number] #### [facility] [address] [place] [id number] Ambulatory Visit Summaryon 0 09-07-2024 Ambulatory Visit Summary Ambulatory Visit Summary GALE SOSA :1980 Visit Date:09/07/2024 Ambulatory Visit Instructions Your Diagnosis UTI symptoms Non-smoker BMI 28.0-28.9,adult Overweight (BMI 25.0-29.9) Your Care Team Attending Physician - GENESIS RAUSCH CNP Primary Care Physician - Maddison Basurto This Is Your Medications List cyclobenzaprine (cyclobenzaprine 7.5 mg oral tablet) levothyroxine (levothyroxine 88 mcg (0.088 mg) Tab) meloxicam (meloxicam 15 mg Tab) metformin (metformin 500 mg Tab) quetiapine (quetiapine 25 mg Tab) venlafaxine (venlafaxine 100 mg Tab) Procedures Performed AZEEM - Total abdominal hysterectomy (2021), Ablation (2020), section, Ovarian cyst, Right knee. Discharge Vitals Temperature (Oral) 36.1 ???C Heart Rate (Peripheral) 78 Respiratory Rate 20 Blood Pressure 122/82 Height 155.0 cm Height 61 in Weight 68.2 kg Weight 150.355 lb BMI 28.39 Medications What How Much When Why Instructions Unchanged cyclobenzaprine (cyclobenzaprine 7.5 mg oral tablet) 1 Tablets By Mouth 2 times a day as needed for for spasm Low back pain Non-smoker BMI 27.0-27.9,adult Unchanged levothyroxine (levothyroxine 88 mcg (0.088 mg) Tab) See instructions TAKE 1 TABLET BY MOUTH EVERY DAY Unchanged meloxicam (meloxicam 15 mg Tab) See instructions TAKE 1 TABLET BY MOUTH EVERY DAY Unchanged metformin (metformin 500 mg Tab) 1 Tablets By Mouth Every day Unchanged quetiapine (quetiapine 25 mg Tab) See instructions TAKE 1 TABLET BY MOUTH EVERY DAY Unchanged venlafaxine (venlafaxine 100 mg Tab) See instructions TAKE 1 TABLET BY MOUTH EVERY DAY Allergies No Known Medication Allergies Problems Ongoing - Any problem that you are currently receiving treatment for. Anxiety Hailee's disease Low back pain Multilevel degenerative disc disease Need for hepatitis B screening test Ovarian cyst Pre-employment examination Sinus pressure Swollen lymph nodes Wellness examination Patient Survey You may receive a survey via text or e-mail asking about your office visit. Please share your experience with us by completing your survey. We appreciate your feedback and thank you for choosing us for your care. Normal [facility] Family Medicine Office/Clini c Noteon 09-07-2024 Family Medicine Office/Clinic Note Family Medicine Office/Clinic Note Chief Complaint Stabbing pain after urination and a sense of fullness HPI Staff Gale is a 43 year old female presenting with frequent urination Onset: Saturday Symptoms: frequency, dysuria at the end of urination only dribbles when she does go always feels like her bladder is full pinkish tinge to her urine 3-4 times in a row OTC used: Baking soda in water drink this Last UTI: none that she can remember Hx of kidney stones: none UA in office documented in chart I have reviewed and verified the staff HPI to be accurate for this encounter. History of Present Illness 43 year old patient of Marina Prabhakar CNP presents today for an acute visit with symptoms of a possible urinary tract infection. Symptoms arose on Saturday and are characterized by a burning sensation followed by sharp, stabbing pain at the end of urination. There is also a noted pink urine discoloration and a constant feeling of bladder fullness. The patient's past history includes recurrent urinary tract infections during childhood, but no significant recurrences as an adult. She reports no associated fever or back pain, the latter of which lessens the likelihood of kidney stones. Although sexually active in a monogamous relationship, no additional sexually transmitted concerns were posed during this evaluation. She has self-managed her symptoms with cranberry juice and a single dose of a baking soda solution, without resorting to pharmaceutical aids like Azo. Review of Systems PHQ Score Initial Depression Screen Score: 0 SCORE Constitutional: no fever, no chills, no sweats, no weakness Skin: no Jaundice, no rash, no lesions, nopetechiae Respiratory: no shortness of breath, no cough, no orthopnea, no wheezing Cardiovascular: no chest pain, no palpitations, no edema Gastrointestinal: no nausea, no vomiting, no diarrhea, no GI bleeding Genitourinary: Reports stabbing pain after urination, feeling of fullness, and pink urine. Denies fever and back pain. Neurologic: no headache, no dizziness, no numbness, no weakness Psychiatric: no sleeping problems, no irritability, no mood swings/depression. Physical Exam Vitals & Measurements T: 36.1 ???C(Oral) HR: 78(Peripheral) RR: 20 BP: 122/82 SpO2: 98% HT: 61 in HT: 155.0 cm WT: 68.2 kg WT: 150.355 lb BMI: 28.39 General: alert, no acute distress Cardiovascular: regular rate and rhythm, normal peripheral perfusion Respiratory: Lungs CTA, respirations non labored Gastrointestinal: soft, non distended, no CV tenderness, no guarding. Back: No tenderness, Normal ROM, Normal alignment. Extremities: no deformity, no trauma Neurological: oriented x 4 speech normal Psychiatric: cooperative, affect appropriate for age, normal judgement, normal psychiatric thoughts. Assessment/Plan 1. UTI symptoms (R39.9: Unspecified symptoms and signs involving the genitourinary system) - Urinalysis planned to confirm presence of infection; hydration advised for symptom management. POC UA completed today Awaiting urine culture results Encourage increase fluids f/u as scheduled with her pcp Ordered: nitrofurantoin, 100 mg = 1 cap(s), Oral, QID, X 5 day(s), # 20 cap(s), Refills(s) 0, Pharmacy: [facility]/pharmacy #[id number], 155, cm, 09/07/24 9:06:00 EDT, Height/Length Dosing, 68.2, kg, 09/07/24 9:06:00 EDT, Weight Dosing Urine Culture Urnls Dip Stick Auto w/o Microscopy POC [id number] 2. Non-smoker (Z78.9: Other specified health status) Encouraged to continue as a non-smoker 3. BMI 28.0-28.9,adult (Z68.28: Body mass index [BMI] 28.0-28.9, adult) The standard range for ages 18 and older is >=18.5 and < 25 kg/m2. Your BMI today was above this range, this falls in the overweight to obese category and there are medical benefits to weight loss. We can offer counselling, referral, and/or medical support in addressing this problem. Your BMI and weight management will be followed at subsequent visits. 4. Overweight (BMI 25.0-29.9) (E66.3: Overweight) - Recommended reduced sugar cranberry juice within a balanced diet; discussed potential health benefits associated with weight management. Follow-up No qualifying data available Problem List/Past Medical History Ongoing Anxiety Hailee's disease Low back pain Multilevel degenerative disc disease Need for hepatitis B screening test Ovarian cyst Pre-employment examination Sinus pressure Swollen lymph nodes Wellness examination Historical No qualifying data Procedure/Surgical History AZEEM - Total abdominal hysterectomy (2021), Ablation (2020), section, Ovarian cyst, Right knee. Medications cyclobenzaprine 7.5 mg oral tablet, 7.5 mg= 1 tab(s), Oral, BID, PRN levothyroxine 88 mcg (0.088 mg) Tab, See Instructions Macrodantin 100 mg oral capsule, 100 mg= 1 cap(s), Oral, QID meloxicam 15 mg Tab, See Instructions metformin 500 mg Tab, 500 mg= 1 tab(s), Oral, Daily, 3 refills quetiapine 25 mg Tab, See Instructions v (more content not included)... Normal [facility] Comment on above: Result Comment: Elec tronically Signed By: GENESIS RAUSCH CNP\.br\Date and Time Signed: 09/07/24 11:39 EDT CHEMISTRYOrdered By: SYSTEM SYSTEM on 03-05-2024 Cholesterol [Mass/Vol] 262 mg/dL High 120 - 200 mg/dL [facility] Cholesterol in HDL [Mass/Vol] 61 mg/dL Invalid Interpretation Code [facility] Comment on above: Result Comment: '>= 60 LOW RISK' '<= 40 HIGH RISK' Cholesterol in LDL [Mass/Vol] 199 mg/dL High <=129mg/dL [facility] Cholesterol in VLDL [Mass/Vol] 24 mg/dL Normal 7 - 40 mg/dL [facility] Glucose [Mass/Vol] 101 mg/dL High 55 - 99 mg/dL [facility] Triglyceride [Mass/Vol] 120 mg/dL Normal <=149mg/dL Remisol [facility] Glu Fastingon 03-05-2024 Glucose [Mass/Vol] 101 mg/dL High 55-99 [facility] Comment on above: Performed By: #### 2 [id number] #### [facility] [address] [place] [address] Lipid Panelon 03-05-2024 Cholesterol [Mass/Vol] 262 mg/dL High 120-200 [facility] Comment on above: Performed By: #### 2 [id number] #### [facility] [address] [place] [address] Cholesterol in HDL [Mass/Vol] 61 mg/dL Invalid Interpretation Code [facility] Comment on above: Result Comment: '>= 60 LOW RISK' '<= 40 HIGH RISK' Performed By: #### 2 [id number] #### [facility] [address] [place] [address] Cholesterol in LDL [Mass/Vol] 199 mg/dL High <=129 [facility] Comment on above: Performed By: #### 2 [id number] #### [facility] [address] [place] [address] Cholesterol in VLDL [Mass/Vol] 24 mg/dL Normal 7-40 [facility] Comment on above: Performed By: #### 2 [id number] #### [facility] [address] [place] [address] Triglyceride [Mass/Vol] 120 mg/dL Normal <=149 [facility] Comment on above: Performed By: #### 2 [id number] #### [facility] [address] [place] [address] Family Medicine Office/Clini c Noteon 01-17-2024 Family Medicine Office/Clinic Note Family Medicine Office/Clinic Note HPI Staff 6wk check up to low back pain. Given Meloxicam, Medrol Dose Pack & Cyclobenzaprine therapy. Pain characteristics: Pain location: lower back Intensity:_ Onset: 3m ago Medication used: Meloxicam, Medrol Dose Pack & Cyclobenzaprine therapy. 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 Review of Systems PHQ Score Initial Depression Screen Score: 0 SCORE Physical Exam Vitals & Measurements T: 37.1 ?C(Temporal Artery) HR: 96(Peripheral) RR: 20 BP: 124/84 SpO2: 98% HT: 61 in HT: 155.0 cm WT: 66.8 kg WT: 146.96 lb BMI: 27.8 General: alert, no acute distress ENMT: oral mucosa moist, no pharyngeal erythema or exudate Cardiovascular: regular rate and rhythm, normal peripheral perfusion Respiratory: Lungs CTA, respirations non labored Extremities: no deformity, no trauma Neurological: oriented x 4, LOC appropriate for age, CN II-XII intact, motor strength equal & normal bilaterally, speech normal Assessment/Plan 1. Multilevel degenerative disc disease (M53.9: Dorsopathy, unspecified) pt still having back pain. discussed pt. she is not interested in that at this time. RTC as needed 2. 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 will give her an order for HEP B and MMR titers to be done at [facility]. 3. BMI 27.0-27.9,adult (Z68.27: Body mass index [BMI] 27.0-27.9, adult) BMI Education given 4. Over weight (E66.3: Overweight) see above Follow-up No qualifying data available Problem List/Past Medical History Ongoing Anxiety Hailee's disease Low back pain Multilevel degenerative disc disease Need for hepatitis B screening test Ovarian cyst Pre-employment examination Sinus pressure Swollen lymph nodes Historical No qualifying data Procedure/Surgical History AZEEM - Total abdominal hysterectomy (2021), Ablation (2020), section, Ovarian cyst, Right knee. Medications cyclobenzaprine 7.5 mg oral tablet, 7.5 mg= 1 tab(s), Oral, BID, PRN levothyroxine 88 mcg (0.088 mg) Tab, See Instructions meloxicam 15 mg Tab, See Instructions metformin 500 mg Tab, 500 mg= 1 tab(s), Oral, Daily, 3 refills quetiapine 25 mg Tab, 25 mg= 1 tab(s), Oral, Daily, 1 refills venlafaxine 100 mg Tab, See Instructions Allergies No Known Medication Allergies Social History Tobacco Never (less than 100 in lifetime) Tobacco Use:. Never Smokeless Tobacco Use:. Cigarettes, Household tobacco concerns: No., 01/15/2024 Immunizations Vaccine Date Status diphtheria/pertussis , acel/tetanus adult 11/15/2018 Recorded Normal [facility] Comment on above: Result Comment: Elec tronically Signed By: Maddison Basurto\.br\Date and Time Signed: 01/17/24 13:56 EDT Reminderson 12-05-2023 Reminders Reminders - From: Maddison Basurto To: B - Clinical; Sent: 12/05/2023 08:03:35 EDT Show [...] doesn't relieve things will be in touch [facility] XR Spine Lumbosacral Minimum 4 Viewson [...] mGy = na DAP = na Normal [facility] Ambulatory Visit Summaryon 0 12-03-2023 Ambulatory [...] 4:40 PM EDT With: Maddison Basurto Where: [facility] [place] Normal [facility] Family Medicine Office/Clini c Noteon 12-03-2023 [...] spasm, # 30 tab(s), Refills(s) 0, Pharmacy: [facility]/pharmacy #[id number], 155, cm, 12/03/23 9:08:00 EDT, Height/Length Dosing, 65.5, kg, 12/03/23 9:08:00 EDT, Weight Dosing meloxicam, 15 mg = 1 tab(s), Oral, Daily, # 30 tab(s), Refills(s) 0, Pharmacy: [facility]/pharmacy #[id number], 155, cm, 12/03/23 9:08:00 EDT, Height/Length Dosing, 65.5, kg, 12/03/23 9:08:00 EDT, Weight Dosing methylPREDNISolone, = 1 packet(s), Oral, As Directed, as directed on package labeling, X 6 day(s), # 21 tab(s), Refills(s) 0, Pharmacy: [facility]/pharmacy #[id number], 155, cm, 12/03/23 9:08:00 EDT, Height/Length Dosing, 65.5, kg, 12/03/23 9:08:00 EDT, Weight Dosing 2. Non-smoker (Z78.9: Other specified health status) continue not smoking Ordered: cyclobenzaprine, 7.5 mg = 1 tab(s), Oral, BID, PRN for spasm, # 30 tab(s), Refills(s) 0, Pharmacy: [facility]/pharmacy #[id number], 155, cm, 12/03/23 9:08:00 EDT, Height/Length Dosing, 65.5, kg, 12/03/23 9:08:00 EDT, Weight Dosing meloxicam, 15 mg = 1 tab(s), Oral, Daily, # 30 tab(s), Refills(s) 0, [id number], cm, 12/03/23 9:08:00 EDT, Height/Length Dosing, 65.5, kg, 12/03/23 9:08:00 EDT, Weight Dosing methylPREDNISolone, = 1 packet(s), Oral, As Directed, as directed on package labeling, X 6 day(s), # 21 tab(s), Refills(s) 0, [id number], [facility], cm, 12/03/23 9:08:00 EDT, Height/Length Dosing, 65.5, kg, 12/03/23 9:08:00 EDT, Weight Dosing 3. BMI 27.0-27.9,adult (Z68.27: Body mass index [BMI] 27.0-27.9, adult) BMI education given Ordered: cyclobenzaprine, 7.5 mg = 1 tab(s), Oral, BID, PRN for spasm, # 30 tab(s), Refills(s) 0, [id number], cm, 12/03/23 9:08:00 EDT, Height/Length Dosing, 65.5, kg, 12/03/23 9:08:00 EDT, Weight Dosing meloxicam, 15 mg = 1 tab(s), Oral, Daily, # 30 tab(s), Refills(s) 0, [id number], 155, cm, 12/03/23 9:08:00 EDT, Height/Length Dosing, 65.5, kg, 12/03/23 9:08:00 EDT, Weight Dosing methylPREDNISolone, = 1 packet(s), Oral, As Directed, as directed on package labeling, X 6 day(s), # 21 tab(s), Refills(s) 0, [id number], 155, cm, 12/03/23 9:08:00 EDT, Height/Length [...] Use:. C (more content not included)... Normal [facility] Comment on above: Result Comment: Elec tronically Signed By: Maddison Basurto\.br\Date and Time Signed: 12/03/23 09:45 EDT Reminderson 06-10-2023 Reminders - From: Maddison Basurto To: [facility] - Clinical; Sent: 06/10/2023 08:49:47 EST Show up: 06/10/2023 08:50:00 EST Subject: Ambulatory Reminder Due Date/Time: 06/11/2023 08:49:00 EST TSH is normal. does she need refills on meds? Results: Date Result Name Value Ref Range 06/07/2023 8:33 TSH 4.12 mcIU/mL (0.34 - 5.60) Patient informed of results. Patient does need a refill. Will be proposed in another message. Normal [facility] Ambulatory Visit Summaryon 0 06-07-2023 Ambulatory [...] for choosing us for your care. Normal [facility] CHEMISTRYOrdered By: SYSTEM SYSTEM on 06-07-2023 [...] diphtheria/pertussis , acel/tetanus adult 11/15/2018 Recorded Normal [facility] TSHon 06-07-2023 TSH Qn 4.12 m[IU]/L Normal 0.34-5.60 [facility] Comment on above: Performed By: #### 2 [id number] ####[facility] [address] [place] [address] Formson 05-30-2023 Forms [id number] Normal [facility] Ambulatory Visit Summaryon 0 05-29-2023 Ambulatory [...] Follow-Up Appointments Saturday 8:20 AM EST Where: [facility] [place] Normal [facility] Family Medicine Office/Clini c Noteon 05-29-2023 [...] q12hr, # 20 cap(s), Refills(s) 0, Pharmacy: [facility]/pharmacy #[id number], 155, cm, 02/14/23 8:53:00 EDT, Height/Length Dosing, 66.8, kg, 02/14/23 8:53:00 EDT, Weight Dosing Orders: levothyroxine, 50 mcg = 1 tab(s), Oral, Daily, # 30 tab(s), Refills(s) 1, Pharmacy: [facility]/pharmacy #[id number], 155, cm, 02/14/23 8:53:00 EDT, Height/Length [...] diphtheria/pertussis , acel/tetanus adult 11/15/2018 Recorded Normal [facility] Comment on above: Result Comment: Elec [...] patient notified of message below, transferred to front office medical assistant to schedule 6 week re draw TSH Normal [facility] CHEMISTRYOrdered By: SYSTEM SYSTEM on 04-24-2023 TSH Qn 0.07 m[IU]/L Low 0.34 - 5.60 mcIU/mL [facility] Remisol TSHon 12-06-2023 TSH Qn 0.07 m[IU]/L Low 0.34-5.60 [facility] Comment on above: Performed By: #### 2 [id number] ####[facility] [address] [place] [address] CHEMISTRYOrdered By: SYSTEM SYSTEM on 03-14-2023 TSH Qn 0.01 m[IU]/L Low 0.34 - 5.60 mcIU/mL [facility] Remisol TSHon 03-14-2023 TSH Qn 0.01 m[IU]/L Low 0.34-5.60 [facility] Comment on above: Performed By: #### 2 [id number] ####[facility] [address] [place] [address] CHEMISTRYOrdered By: SYSTEM SYSTEM on 01-29-2023 Free T4 [Mass/Vol] 1.77 ng/dL High 0.58 - 1. 64 ng/dL [facility] Remisol TSH Qn 0.01 m[IU]/L Low 0.34 - 5.60 mcIU/mL [facility] Remisol PAP ACOG PANEL 2: 21 to 29on 07-09-2022 . . Normal [facility] Comment on above: Result Comment: Perf ormed at: WB Performed By: #### 4 [id number] #### [facility] [address] [place] [address] Dr. Galen Meyers Age Gdln ACOG Testing 30-65 Normal [facility] Comment on above: Performed By: #### 4 [id number] #### [facility] [address] [address] [address] Galen Meyers DIAGNOSIS: Comment Normal [facility] Comment on above: Result Comment: NEGA TIVE FOR INTRAEPITHELIAL LESION OR MALIGNANCY. Performed at: WB Performed By: #### 4 [id number] #### [facility] [address] [address] [address] Galen Meyers HPV Aptima Negative Normal Negative [facility] Comment on above: Result Comment: This nucleic acid amplification test detects fourteen high-risk HPV types (16,18,31,33,35,39,45,51,52,56,58,59,66,68) without differentiation. Performed at: =G Performed By: #### 4 [id number] #### [facility] [address] [place] [address] Dr. Galen Meyers HPV Genotype Reflex Comment Normal [facility] Comment on above: Result Comment: Crit erxochitl not met, HPV Genotype not performed. Performed at: WB Performed By: #### 4 [id number] #### [facility] [address] [place] [address] Dr. Galen Meyers Methodology: Comment Normal [facility] Comment on above: Result Comment: This liquid based ThinPrep(R) pap test was screened with the use of an image guided system. Performed at: WB Performed By: #### 4 [id number] #### [facility] [address] [place] [address] Dr. Galen Meyers Note: Comment Normal [facility] Comment on above: Result Comment: The Pap smear is a screening test designed to aid in the detection of premalignant and malignant conditions of the uterine cervix. It is not a diagnostic procedure and should not be used as the sole means of detecting cervical cancer. Both false-positive and false-negative reports do occur. . Performed at: WB Performed By: #### 4 [id number] #### [facility] [address] [place] [address] Dr. Galen Meyers Performed by: Comment Normal [facility] Comment on above: Result Comment: Inge Sneed, [employer] (ASCP) Performed at: WB Performed By: #### 4 [id number] #### [facility] [address] [place] [address] Dr. Galen Meyers Specimen adequacy: Comment Normal [facility] Comment on above: Result Comment: Sati sfactory for evaluation. No endocervical component is identified. Performed at: WB Performed By: #### 4 [id number] #### [facility] [address] [place] [address] Dr. Galen Meyers CBC AUTO DIFFon 04-17-2022 BASO # 0.0 103/ul Normal 0.0-0.1 [facility] Comment on above: Performed By: #### C BC #### [facility] [address] [address] [address] Galen Meyers Basophils/100 WBC (Bld) 0.5 % Normal 0.2-2.[address] [facility] Comment on above: Performed By: #### C BC #### [facility] [address] [address] [address] Galen Meyers EO # 0.2 103/ul Normal 0.0-0.[address] [facility] Comment on above: Performed By: #### C BC #### [facility] [address] [place] [address] Dr. Galen Meyers Eosinophils/100 WBC (Bld) 2.2 % Normal 0.9-7.[address] [facility] Comment on above: Performed By: #### C BC #### [facility] [address] [place] [address] Dr. Galen Meyers Erythrocyte distribution width (RBC) [Ratio] 13.5 % Normal 11.0-15.0 [facility] Comment on above: Performed By: #### C BC #### [facility] [address] [place] [address] Dr. Galen Meyers Hematocrit (Bld) [Volume fraction] 38.3 % Normal 36.0-48.0 [facility] Comment on above: Performed By: #### C BC #### [facility] [address] [place] [address] Dr. Galen Meyers Hemoglobin (Bld) [Mass/Vol] 12.7 g/dL Normal 12.0-16.[address] [facility] Comment on above: Performed By: #### C BC #### [facility] [address] [place] [address] Dr. Galen Meyers IG # 0.02 10e3/ul Normal 0.00-0.[address] [facility] Comment on above: Performed By: #### C BC #### [facility] [address] [place] [address] Dr. Galen Meyers IG % 0.2 % Normal 0.0-0.[address] [facility] Comment on above: Performed By: #### C BC #### [facility] [address] [place] [address] Dr. Galen Meyers LYMPH # 2.6 103/ul Normal 1.2-3.[address] [facility] Comment on above: Performed By: #### C BC #### [facility] [address] [place] [address] Dr. Galen Meyers Lymphocytes/100 WBC (Bld) 31.3 % Normal 20.5-60.0 [facility] Comment on above: Performed By: #### C BC #### [facility] [address] [place] [address] Dr. Galen Meyers MANUAL DIFF REQ NO Normal [facility] Comment on above: Performed By: #### C BC #### [facility] [address] [place] [address] Dr. Galen Meyers MCH (RBC) [Entitic mass] 27.0 pg Normal 26.7-34.0 [facility] Comment on above: Performed By: #### C BC #### [facility] [address] [place] [address] Dr. Galen Meyers MCHC (RBC) [Mass/Vol] 33.2 g/dL Normal 29.9-35.[address] [facility] Comment on above: Performed By: #### C BC #### [facility] [address] [place] [address] Dr. Galen Meyers MCV (RBC) [Entitic vol] 81.3 fL Normal 81.0-99.0 [facility] Comment on above: Performed By: #### C BC #### [facility] [address] [place] [address] Dr. Galen Meyers MONO # 0.4 103/ul Normal 0.3-0.[address] [facility] Comment on above: Performed By: #### C BC #### [facility] [address] [place] [address] Dr. Galen Meyers Monocytes/100 WBC (Bld) 5.3 % Normal 1.7-12.[address] [facility] Comment on above: Performed By: #### C BC #### [facility] [address] [place] [address] Dr. Galen Meyers NEUT # 5.0 103/ul Normal 1.4-6.5 [facility] Comment on above: Performed By: #### C BC #### [facility] [address] [place] [address] Dr. Galen Meyers Neutrophils/100 WBC (Bld) 60.5 % Normal 43.0-75.0 [facility] Comment on above: Performed By: #### C BC #### [facility] [address] [place] [address] Dr. Galen Meyers Platelet mean volume (Bld) [Entitic vol] 10.3 fL Normal 9.5-13.5 [facility] Comment on above: Performed By: #### C BC #### [facility] [address] [place] [address] Dr. Galen Meyers PLT 318 103/ul Normal 150-[address] [facility] Comment on above: Performed By: #### C BC #### [facility] [address] [place] [address] Dr. Galen Meyers RBC 4.71 106/ul Normal 4.20-5.40 [facility] Comment on above: Performed By: #### C BC #### [facility] [address] [place] [address] Dr. Galen Meyers WBC 8.3 103/ul Normal 4.0-11.0 [facility] Comment on above: Performed By: #### C BC #### [facility] [address] [place] [address] Dr. Galen Meyers FREE T3on 04-17-2022 FREE T3 3.10 pg/mlL Normal 2.18-3.98 [facility] Comment on above: Performed By: #### C MP, TSH, FT3, LIPID #### [facility] [address] [place] [address] Dr. Galen Meyers FREE T4on 04-17-2022 Free T4 [Mass/Vol] 1.19 ng/dL Normal 0.76-1.46 [facility] Comment on above: Performed By: #### F T4 #### [facility] [address] [place], [place] [id number] Dr. Galen Meyers GLYCOHEMOGLOBIN A1Con 2021 ADA RECOMMENDATION SEE BELOW Normal [facility] Comment on above: Result Comment: ADA RECOMMENDED LIMIT 4.0 - 6.0 ADA THERAPEUTIC TARGET < 7.0 ACTION SUGGESTED > 7.0 Performed By: #### A 1C #### [facility] [address] [place] [address] Dr. Galen Meyers Glucose [Mass/Vol] 126 mg/dL Normal [facility] Comment on above: Performed By: #### A 1C #### [facility] [address] [place] [address] Dr. Galen Meyers HbA1c (Bld) [Mass fraction] 6.0 % Normal 4.5-6.2 [facility] Comment on above: Performed By: #### A 1C #### [facility] [address] [place] [address] Dr. Galen Meyers LIPID PROFILEon 04-17-2022 CHOL-HDL RATIO NORM SEE BELOW Normal [facility] Comment on above: Result Comment: 3.3 - 4.4 LOW RISK 4.4 - 7.1 AVERAGE RISK 7.1 - 11.0 MODERATE RISK >11.0 HIGH RISK Performed By: #### C MP, TSH, FT3, LIPID #### [facility] [address] [place] [address] Dr. Galen Meyers Cholesterol [Mass/Vol] 245 mg/dL Critically high <=200 [facility] Comment on above: Performed By: #### C MP, TSH, FT3, LIPID #### [facility] [address] [place] [address] Dr. Galen Meyers Cholesterol in HDL [Mass/Vol] 51 mg/dL Normal 40-60 [facility] Comment on above: Performed By: #### C MP, TSH, FT3, LIPID #### [facility] [address] [place] [address] Dr. Galen Meyers Cholesterol in LDL [Mass/Vol] 166.2 mg/dL Normal [facility] Comment on above: Performed By: #### C MP, TSH, FT3, LIPID #### [facility] [address] [address] [address] Galen Meyers Cholesterol.total/Ch olesterol in HDL [Mass ratio] 4.8 {ratio} Normal [facility] Comment on above: Performed By: #### C MP, TSH, FT3, LIPID #### [facility] [address] [address] [address] Galen Meyers HDL NORMAL > or = 60 mg/dl - LOW CARDIOVASCULAR RISK <40 mg/dl - HIGH CARDIOVASCULAR RISK Normal [facility] Comment on above: Performed By: #### C MP, TSH, FT3, LIPID #### [facility] [address] [address] [address] Galen Meyers LDL CALC NORMAL SEE BELOW Normal [facility] Comment on above: Result Comment: <100 mg/dl OPTIMAL 100 - 129 mg/dl NEAR OR ABOVE OPTIMAL 130 - 159 mg/dl BORDERLINE HIGH 160 - 189 mg/dl HIGH >190 mg/dl VERY HIGH Performed By: #### C MP, TSH, FT3, LIPID #### [facility] [address] [place] [address] Dr. Galen Meyers Triglyceride [Mass/Vol] 139 mg/dL Normal <=150 [facility] Comment on above: Performed By: #### C MP, TSH, FT3, LIPID #### [facility] [address] [place] [address] Dr. Galen Meyers VLDL CALC 27.8 mg/dL Normal [facility] Comment on above: Performed By: #### C MP, TSH, FT3, LIPID #### [facility] [address] [place] [address] Dr. Galen Meyers PROF 14(COMP METB)on 022 Albumin [Mass/Vol] 4.0 g/dL Normal 3.4-5.0 [facility] Comment on above: Performed By: #### C MP, TSH, FT3, LIPID #### [facility] [address] [place] [address] Dr. Galen Meyers Albumin/Globulin [Mass ratio] 1.1 {ratio} Normal [facility] Comment on above: Performed By: #### C MP, TSH, FT3, LIPID #### [facility] [address] [place] [address] Dr. Galen Meyers ALP [Catalytic activity/Vol] 122 U/L Critically high 46-116 [facility] Comment on above: Performed By: #### C MP, TSH, FT3, LIPID #### [facility] [address] [place] [address] Dr. Galen Meyers ALT [Catalytic activity/Vol] 34 U/L Normal 14-59 [facility] Comment on above: Performed By: #### C MP, TSH, FT3, LIPID #### [facility] [address] [place] [address] Dr. Galen Meyers Anion gap [Moles/Vol] 11.8 mmol/L Normal [facility] Comment on above: Performed By: #### C MP, TSH, FT3, LIPID #### [facility] [address] [place] [address] Dr. Galen Meyers AST [Catalytic activity/Vol] 17 U/L Normal 15-37 [facility] Comment on above: Performed By: #### C MP, TSH, FT3, LIPID #### [facility] [address] [place] [address] Dr. Galen Meyers Bilirubin [Mass/Vol] 0.3 mg/dL Normal 0.2-1.0 [facility] Comment on above: Performed By: #### C MP, TSH, FT3, LIPID #### [facility] [address] [place] [address] Dr. Galen Meyers Calcium [Mass/Vol] 9.4 mg/dL Normal 8.5-10.1 [facility] Comment on above: Performed By: #### C MP, TSH, FT3, LIPID #### [facility] [address] [place] [address] Dr. Galen Meyers Chloride [Moles/Vol] 102 mmol/L Normal 98-107 [facility] Comment on above: Performed By: #### C MP, TSH, FT3, LIPID #### [facility] [address] [place] [address] Dr. Galen Meyers CO2 [Moles/Vol] 29.0 mmol/L Normal 21.0-32.0 [facility] Comment on above: Performed By: #### C MP, TSH, FT3, LIPID #### [facility] [address] [address] [address] Galen Meyers Creatinine [Mass/Vol] 0.64 mg/dL Normal 0.55-1.02 [facility] Comment on above: Performed By: #### C MP, TSH, FT3, LIPID #### [facility] [address] [address] [address] Galen Meyers EGFR-AF PRYDEINIG >60 Normal >=60 [facility] Comment on above: Performed By: #### C MP, TSH, FT3, LIPID #### [facility] [address] [place] [address] Dr. Galen Meyers EGFR-NON AF PRYDEINIG >60 Normal >=60 [facility] Comment on above: Performed By: #### C MP, TSH, FT3, LIPID #### [facility] [address] [place] [address] Dr. Galen Meyers Globulin (S) [Mass/Vol] 3.6 g/dL Normal [facility] Comment on above: Performed By: #### C MP, TSH, FT3, LIPID #### [facility] [address] [place] [address] Dr. Galen Meyers Glucose [Mass/Vol] 118 mg/dL Critically high 74-106 [facility] Comment on above: Performed By: #### C MP, TSH, FT3, LIPID #### [facility] [address] [place] [address] Dr. Galen Meyers Potassium [Moles/Vol] 3.8 mmol/L Normal 3.5-5.1 [facility] Comment on above: Performed By: #### C MP, TSH, FT3, LIPID #### [facility] [address] [address] [address] Galen Meyers Protein [Mass/Vol] 7.6 g/dL Normal 6.4-8.2 [facility] Comment on above: Performed By: #### C MP, TSH, FT3, LIPID #### [facility] [address] [address] [address] Galen Meyers Sodium [Moles/Vol] 139 mmol/L Normal 136-145 [facility] Comment on above: Performed By: #### C MP, TSH, FT3, LIPID #### [facility] [address] [place] [address] Dr. Galen Meyers Urea nitrogen [Mass/Vol] 13.0 mg/dL Normal 7.0-18.0 [facility] Comment on above: Performed By: #### C MP, TSH, FT3, LIPID #### [facility] [address] [address] [address] Galen Meyers Urea nitrogen/Creatinine [Mass ratio] 20.3 mg/mg Normal [facility] Comment on above: Performed By: #### C MP, TSH, FT3, LIPID #### [facility] [address] [place] [address] Dr. Galen Meyers TSHon 04-17-2022 TSH 0.017 uIU/mL Critically low 0.358-3.740 [facility] Comment on above: Performed By: #### C MP, TSH, FT3, LIPID #### [facility] [address] [place] [address] Dr. Galen Meyers COVID/FLU RT-PCRon 2 SARS-CoV-2 (COVID-19) RNA RONNY+probe Ql (Unsp spec) Negative [facility] [employer] Other COVID/FLU RT-PCR Negative [employer] Other Quick Strepon 04-05-2022 S. pyogenes Org specific cx Ql (Throat) Negative [employer] Other Quick Strep [employer] Other Chart Updateon 02-18-2019 Chart Update Active [...] Normal [employer] ESTRADIOLon 02-16-2019 ESTRADIOL <20 Normal [facility] Comment on above: Result Comment: Estr adiol measurement is performed using the [employer] Flareo Access Immunoassay. Estradiol testing is performed using a different test methodology at [facility] than other [facility]. Direct result comparison should only be made within the same method. REF VALUES FOLLICULAR PHASE 20-144 MID CYCLE 64-357 LUTEAL PHASE 56-214 POSTMENOPAUSE < 32 PREPUBERTY < 20 MALE 10-18Y < 20 ADULT MALE < 40 Performed By: #### E STRA #### [facility] [address] [place] [address] FOLLICLE STIM. HORMONEon FOLLICLE STIM. HORMONE 82.8 IU/L Normal [facility] Comment on above: Result Comment: Foll icle Stimulating Hormone [FSH] is performed using the [employer] Flareo Access Immunoassay. FSH testing is performed using a different test methodology at [facility] than other [facility]. Direct result comparison should only be made within the same method. REF VALUES FOLLICULAR 2-12 MID-CYCLE 12-25 LUTEAL PHASE 2-12 MENOPAUSE 30-150 PREPUBERTY 50% ADULT ADULT MALE 2-10 INFANTS 0-1 Performed By: #### P MARCIAL #### [facility] [address] [place] [address] LUTEINIZING HORMONEon 2018 LUTEINIZING HORMONE 28.5 IU/L Normal [facility] Comment on above: Result Comment: Lute inizing Hormone [LH] is performed using the [employer] Flareo Access Immunoassay. LH testing is performed using a different test methodology at [facility] than other [facility]. Direct result comparison should only be made within the same method. REF VALUES FOLLICULAR PHASE 1.5-10.0 MID-CYCLE 13.0-72.0 LUTEAL PHASE 0.5-13.0 MENOPAUSE 15.0-65.0 PREPUBERTY 0- 3.0 CHILDREN 0- 6.0 ADULT MALE 1.0- 9.0 Performed By: #### L H #### [facility] [address] [place] [address] PROGESTERONEon 02-16-2019 PROGESTERONE 0.5 ng/mL Normal [facility] Comment on above: Result Comment: Prog esterone is performed using the [employer] Flareo Access Immunoassay. Progesterone testing is performed using a different test methodology at [facility] than other [facility]. Direct result comparison should only be made within the same method. REF VALUES MALE <0.2-0.8 FOLLICULAR PHASE <0.2-1.5 LUTEAL PHASE 7.4-15.4 POSTMENOPAUSAL <0.2-0.2 1ST TRIMESTER 12.0-84.0 2ND TRIMESTER 10.2-58.8 3RD TRIMESTER 46.5-160 Performed By: #### P MARCIAL #### [facility] [address] [place] [address] ESTRADIOLon 02-11-2019 ESTRADIOL <20 Normal [facility] Comment on above: Result Comment: Estr adiol measurement is performed using the [employer] Flareo Access Immunoassay. Estradiol testing is performed using a different test methodology at [facility] than other [facility]. Direct result comparison should only be made within the same method. REF VALUES FOLLICULAR PHASE 20-144 MID CYCLE 64-357 LUTEAL PHASE 56-214 POSTMENOPAUSE < 32 PREPUBERTY < 20 MALE 10-18Y < 20 ADULT MALE < 40 Performed By: #### E STRA #### [facility] [address] [place] [address] LUTEINIZING HORMONEon 2018 LUTEINIZING HORMONE 18.9 IU/L Normal [facility] Comment on above: Result Comment: Lute inizing Hormone [LH] is performed using the [employer] Flareo Access Immunoassay. LH testing is performed using a different test methodology at [facility] than [facility]. Direct result comparison should only be made within the same method. REF VALUES FOLLICULAR PHASE 1.5-10.0 MID-CYCLE 13.0-72.0 LUTEAL PHASE 0.5-13.0 MENOPAUSE 15.0-65.0 PREPUBERTY 0- 3.0 CHILDREN 0- 6.0 ADULT MALE 1.0- 9.0 Performed By: #### L H #### [facility] [address] [place] [address] PROGESTERONEon 02-11-2019 PROGESTERONE 0.1 ng/mL Normal [facility] Comment on above: Result Comment: Prog esterone is performed using the [employer] Flareo Access Immunoassay. Progesterone testing is performed using a different test methodology at [facility] than other [facility]. Direct result comparison should only be made within the same method. REF VALUES MALE <0.2-0.8 FOLLICULAR PHASE <0.2-1.5 LUTEAL PHASE 7.4-15.4 POSTMENOPAUSAL <0.2-0.2 1ST TRIMESTER 12.0-84.0 2ND TRIMESTER 10.2-58.8 3RD TRIMESTER 46.5-160 Performed By: #### P MARCIAL #### [facility] [address] [place] [address] TSH WITH REFLEX TO FREE T4 I F ABNORMALon 02-05-2019 TSH Qn 2.85 m[IU]/L Normal 0.44 - 3.98 [facility] Comment on above: Order Comment: TSH C ALLED TO [place], FAXED TO , 02/05/2019 10:26 Result Comment: TSH testing is performed using different testing methodology at [facility] than at [facility]. Direct result comparisons should only be made within the same method. . Patients receiving more than 5 mg/day of biotin may have interference in test results. A sample should be taken no sooner than eight hours after previous dose. Contact [phone] for additional information. TSH CALLED TO [employer] FAXED TO , 02/05/2019 10:26 Performed By: #### T HYDS #### [facility] [address] [place] [address] ESTRADIOLon 02-04-2019 ESTRADIOL 21 pg/mL Normal [facility] Comment on above: Result Comment: Estr adiol measurement is performed using the [employer] Flareo Access Immunoassay. Estradiol testing is performed using a different test methodology at [facility] than other [facility]. Direct result comparison should only be made within the same method. REF VALUES FOLLICULAR PHASE 20-144 MID CYCLE 64-357 LUTEAL PHASE 56-214 POSTMENOPAUSE < 32 PREPUBERTY < 20 MALE 10-18Y < 20 ADULT MALE < 40 Performed By: #### E STRA #### [facility] [address] [place] [address] LUTEINIZING HORMONEon 2018 LUTEINIZING HORMONE 10.9 IU/L Normal [facility] Comment on above: Result Comment: Lute inizing Hormone [LH] is performed using the [employer] [place] Access Immunoassay. LH testing is performed using a different test methodology at [facility] than other [facility]. Direct result comparison should only be made within the same method. REF VALUES FOLLICULAR PHASE 1.5-10.0 MID-CYCLE 13.0-72.0 LUTEAL PHASE 0.5-13.0 MENOPAUSE 15.0-65.0 PREPUBERTY 0- 3.0 CHILDREN 0- 6.0 ADULT MALE 1.0- 9.0 Performed By: #### L H #### [facility] [address] [place] [address] ESTRADIOLon 01-08-2019 ESTRADIOL 231 pg/mL Normal [facility] Comment on above: Result Comment: Estr adiol measurement is performed using the [employer] [place] Access Immunoassay. Estradiol testing is performed using a different test methodology at [facility] than other [facility]. Direct result comparison should only be made within the same method. REF VALUES FOLLICULAR PHASE 20-144 MID CYCLE 64-357 LUTEAL PHASE 56-214 POSTMENOPAUSE < 32 PREPUBERTY < 20 MALE 10-18Y < 20 ADULT MALE < 40 Performed By: #### E STRA #### [facility] [address] [place] [address] HCG,BETA-QUANTITATIVEon 12-19 HCG,BETA-QUANTITATIV E <2 Normal [facility] Comment on above: Result Comment: Low- [...] HCG measurement is performed using the [employer] [place] Access Immunoassay which detects intact HCG and free beta HCG subunit. This test is not indicated for use as a tumor marker. HCG testing is performed using a different test methodology at [facility] than other [facility]. Direct result comparison should only be made within the same method. REF VALUES NON FEMALE <5 MALES <5 Performed By: #### H CGQU #### [facility] [address] [place] [address] PROGESTERONEon 01-08-2019 PROGESTERONE 0.6 ng/mL Normal [facility] Comment on above: Result Comment: Prog esterone is performed using the [employer] Access Immunoassay. Progesterone testing is performed using a different test methodology at [facility] than other [facility]. Direct result comparison should only be made within the same method. REF VALUES MALE <0.2-0.8 FOLLICULAR PHASE <0.2-1.5 LUTEAL PHASE 7.4-15.4 POSTMENOPAUSAL <0.2-0.2 1ST TRIMESTER 12.0-84.0 2ND TRIMESTER 10.2-58.8 3RD TRIMESTER 46.5-160 Performed By: #### P MARCIAL #### [facility] [address] [place] [address] Chart Updateon 12-20-2018 Chart Update Active Problems [...] Dec 20 2018 12:29PM EST (Author) Normal [employer] Chart Updateon 10-23-2018 Chart Update Active Problems [...] the future. Plan: 1. Will have local [employer] remove IUD 2. Call with menses to start Clomid 100 mg CD4-8. Can choose how to monitor cycle for IUI. Prometrium for luteal support. Signatures Electronically signed by : Beena Russo MD; Oct 23 2018 5:44PM EST (Author) Normal [employer] ANTI MULLERIAN HORMONEon ANTI MULLERIAN HORMONE <0.015 Normal [facility] Comment on above: Result Comment: For assays employing antibodies, the possibility exists for interference by heterophile antibodies in the samples.1 1. Adis Champion Interferences in Immunoassays - still a threat. Clin. Chem. 2000; 46: 6435-3502. Reference Range: Females 36 - 40y: 0.42 - 8.34 Median 1.69 [facility] concentrations of >= 1.06 ng/mL is correlated with a better response to ovarian stimulation, produced more retrievable oocytes and higher odds of live according to Oliverer et al. Fertility and Sterility. 2010: 94:9097-9160. The current AMH test method correlates with [...] ovarian tumor. Performed By: #### A #### [employer] [facility] [place], [place] [id number] TESTOST,FREE AND TOTALon TESTOSTERONE TOT.LC/MS/MS 19 ng/dL Normal 2-45 [facility] Comment on above: Result Comment: For additional information, please refer to http://education.Ecommo/faq/ TteofSfxjtuyoitcjHLEQDUNLP252 (This link is being provided for informational/ educational purposes only.) This test was developed and its analytical performance characteristics have been determined by [employer] [place], [place]. It has not been cleared or approved by the U.S. Food and Drug Administration. This assay has been validated pursuant to the CLIA regulations and is used for clinical purposes. Performed By: #### T ESFT #### [facility] [address] [id number] [place], [place] TESTOSTERONE,FREE 2.1 pg/mL Normal 0.1-6.4 [facility] Comment on above: Result Comment: This test was developed and its analytical performance characteristics have been determined by [employer] [place], [place]. It has not been cleared or approved by the U.S. Food and Drug Administration. This assay has been validated pursuant to the CLIA regulations and is used for clinical purposes. Performed By: #### T ESFT #### [facility] [address] PROLACTINon 10-10-2018 PROLACTIN 12.3 ug/L Normal 6.0 - 20.0 [facility] Comment on above: Performed By: #### P ROL #### [facility] [address] [place] [address] THYROXINE,FREEon 10-10-2018 THYROXINE,FREE 1.74 ng/dL High 0.78 - 1.48 [facility] Comment on above: Result Comment: Thyr oxine Free testing is performed using different testing methodology at [facility] than at other [facility]. Direct result comparisons should only be made within the same method. . Patients receiving more than 5 mg/day of biotin may have interference in test results. A sample should be taken no sooner than eight hours after previous dose. Contact [phone] for additional information. Performed By: #### T 4FRE #### [facility] [address] [place] [address] TSH WITH REFLEX TO FREE T4 I F ABNORMALon 10-10-2018 TSH Qn 0.01 m[IU]/L Low 0.44 - 3.98 [facility] Comment on above: Result Comment: TSH testing is performed using different testing methodology at [facility] than at other [facility]. Direct result comparisons should only be made within the same method. . Patients receiving more than 5 mg/day of biotin may have interference in test results. A sample should be taken no sooner than eight hours after previous dose. Contact [phone] for additional information. Performed By: #### T HYDS #### [facility] [address] [place] [address] [employer] - Office Visiton 09-18 [employer] - Office Visit Chief Complaint 37 year [...] irregular for a period of time in 2016 (did not get menses for up to 2 months a time). Went on OCPs to regulate x 2 months and then periods became regular again. Periods were also regular when on Clomid and letrozole. 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 Right tube did not fill initially but did eventually fill and spill with increased pressure. 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 Allergies No Known Drug Allergies Recorded By: Dayday Yo; 10/09/2018 11:23:18 AM Current Meds Levothyroxine Sodium 125 MCG Oral Tablet; Therapy: [id number] to Recorded Dispense: 0 Days ; #: Sufficient Tablet; Refill: 0; JANENE = N; Record; Last Updated By: Dayday Yo; 10/09/2018 11:23:18 AM 19 Oral Tablet; Therapy: [id number] to Recorded Dispense: 0 Days ; #: Sufficient Tablet; Refill: 0; JANENE = N; Record; Last Updated By: Dayday Yo; 10/09/2018 11:23:18 AM Venlafaxine HCl - 100 MG Oral Tablet; Therapy: [id number] to Recorded Dispense: 0 Days ; #: Sufficient Tablet; Refill: 0; JANNEE = N; Record; Last Updated By: Dayday Yo; 10/09/2018 11:23:18 AM Vitals Vital Signs Recorded: 09Oct2018 11:19AM Heart Rate75 Eybwaopp163 Vctkhjykw10 Height5 ft 1 in Qjsxvo312 lb BMI Ubzcfoicwp08.86 BSA Calculated1.53 [id number] Gravida3 Para3 Pain Scale0 Results/Data Transvaginal ultrasound: [...] Exploratory laparotomy For ruptured ovarian cyst 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 History of hypothyroidism (V12.29) (Z86.39) History [...] Services - Lab To Draw (Blood Test); Due:[id number];Ordere d; For:Fertility testing; Ordered By:Beena Russo; Tobacco [...] get records [ ] Genetic Screen with Momail--discussed, patient defers [ ] Take vitamins, vitamin [...] Oct 09 2018 12:46PM EST (Author) Normal [facility] Vital Signs Date Time Vital Sign Value Performing Clinician Facility 12-28-2024 14:29-0400 Body height 154.9 cm Felicia BROWN Work Phone: [facility] 12-28-2024 14:29-0400 Body mass index (BMI) [Ratio] 28.15 kg/m2 Felicia WellsSessionM Work Phone: [facility] 12-28-2024 14:29-0400 Body weight 67.59 kg Felicia BROWN Work Phone: [facility] 12-28-2024 14:29-0400 Diastolic blood pressure 72 mm[Hg] Felicia BROWN Work Phone: [facility] 12-28-2024 14:29-0400 Systolic blood pressure 118 mm[Hg] Felicia BROWN Work Phone: [facility] 04-05-2022 11:55-0500 Body height 154.94 cm Elizabeth Cabrera Other [facility] Other 04-05-2022 11:55-0500 Body mass index (BMI) [Ratio] 28.34 kg/m2 Elizabeth Cabrera Other [facility] Other 11-17-2022 11:55-0500 Body temperature 98.1 [degF] Elizabeth Cabrera Other [facility] Other 04-05-2022 11:55-0500 Body weight 68.04 kg Elizabeth Cabrera Other [facility] Other 04-05-2022 11:55-0500 Respiratory rate 18 /min Elizabeth Cabrera Other [facility] Other 04-05-2022 11:55-0500 SaO2% (BldA) [Mass fraction] 90 % Elizabeth Cabrera Other [facility] Other Encounters Encounter Date Encounter Type Care Provider Facility Start: 12-28-2024 End: 12-28-2024 Bamboo flowsheet Felicia BROWN Work Phone: [facility] Start: 12-28-2024 End: 12-28-2024 Bamboo flowsheet Felicia BROWN Work Phone: [facility] Start: 12-28-2024 End: 12-28-2024 Patient encounter procedure Felicia BROWN Work Phone: [facility] Start: 12-28-2024 End: 12-28-2024 Periodic preventive med est patient 40-64yrs Felicia BROWN Work Phone: [facility] Comment on above: Well woman exam with routine gynecological exam; H/O: hysterectomy; Encounter for screening mammogram for malignant neoplasm of breast; Hormone disorder Start: 10-08-2024 End: 10-08-2024 ambulatory MANAGER E COMMERCE Maddison L Aki [facility] Start: 09-07-2024 End: 09-07-2024 Lab Drop off Maddison L Aki [facility] Start: 09-07-2024 End: 09-07-2024 ambulatory Maddison L Aki Facility:[facility] Start: 03-05-2024 End: 03-05-2024 Lab Drop off Maddison L Aki [facility] Start: 03-05-2024 End: 03-05-2024 ambulatory MANAGER E COMMERCE Maddison L Aki Facility: [facility] Start: 01-15-2024 End: 01-15-2024 ambulatory MANAGER E COMMERCE Maddison L Aki Facility: [facility] Start: 12-25-2023 End: 12-25-2023 ambulatory FELICIA HIGH Not Available Start: 12-03-2023 End: 12-03-2023 ambulatory MANAGER E COMMERCE Maddison L Aki Facility[facility] Start: 12-03-2023 End: 12-03-2023 Patient encounter procedure Maddison L Aki [facility] Start: 12-03-2023 End: 12-03-2023 ambulatory MANAGER E COMMERCE Maddison L Aki Facility: [facility] [place] jodie Start: 07-31-2023 End: 07-31-2023 ambulatory MANAGER E COMMERCE Maddison L Aki Facility: [facility] jodie Start: 06-07-2023 End: 06-07-2023 Lab Drop off Maddison L Aki [facility] Start: 06-07-2023 End: 06-07-2023 ambulatory MANAGER E COMMERCE Maddison L Aki Facility[facility] Start: 05-29-2023 End: 05-29-2023 ambulatory MANAGER E COMMERCE Maddison L Aki Facility: [facility] jodie Start: 04-24-2023 End: 04-24-2023 Lab Drop off Maddison L Aki [facility] Start: 04-24-2023 End: 04-24-2023 ambulatory MANAGER E COMMERCE Maddison L Aki Facility[facility] Start: 03-14-2023 End: 03-14-2023 Lab Drop off Maddison L Aki [facility] Start: 03-14-2023 End: 03-14-2023 ambulatory MANAGER E COMMERCE Maddison Prabhakar Facility[facility] Start: 01-29-2023 End: 01-29-2023 Lab Drop off Maddison Prabhakar [facility] Start: 07-03-2022 End: 07-03-[address] JESSA ROBB . Facility: Start: 04-21-2022 Encounter for genera l adult medical examination without abnormal findings DR HIWOT MARSH . [facility] Start: 04-17-2022 End: 04-18-[address] HIWOT MARSH . Facility: Start: 04-17-2022 End: 04-18-2022 Encounter for general adult medical examination without abnormal findings DR HIWOT MARSH . Facility: Start: 04-05-2022 End: 04-05-2022 ambulatory Elizabeth Cabrera Other [facility] Other Start: 04-05-2022 Office outpatient ne w 30 minutes Elizabeth Cabrera [facility] Procedures Date Procedure Procedure Detail Performing Clinician Start: 05-20-2021 Total abdominal hysterectomy Maddison Aki Start: 05-20-2020 Destructive procedure J gunnar Aki Comment on above: uterine section Maddison Aki Comment on above: X1 Cyst of ovary (disorder) Jod i Aki H/O: hysterectomy H/O: hysterectomy Felicia BROWN Work Phone: Structure of right k nee (body structure) Maddison Aki Plan of Treatment Date Care Activity Detail Author Start: 12-29-2025 End: 12-29-2025 Patient encounter procedure 12/29/2025 1:00 PM EDT Procedure Visit [facility] [address] [place] [phone] Jessa Robb DO [address] [place] [address] [facility] Start: 12-28-2024 End: 12-28-2025 C-peptide C-peptide Lab Routine Hormone disorder Expected: 12/28/2024 (Approximate), Expires: 12/28/2025 [facility] Comment on above: Expected: 12/28/2024 (Approximate), Expires: 12/28/2025 Start: 12-28-2024 End: 12-28-2025 Cortisol free Cortisol, free Lab Routine Hormone disorder Expected: 12/28/2024 (Approximate), Expires: 12/28/2025 [facility] Comment on above: Expected: 12/28/2024 (Approximate), Expires: 12/28/2025 Start: 12-28-2024 End: 12-28-2025 Glucose [Mass/volume] in Serum or Plasma Glucose, random Lab Routine Hormone disorder Expected: 12/28/2024 (Approximate), Expires: 12/28/2025 [facility] Comment on above: Expected: 12/28/2024 (Approximate), Expires: 12/28/2025 Start: 12-28-2024 End: 12-28-2025 Insulin, total Insulin, total Lab Routine Hormone disorder Expected: 12/28/2024 (Approximate), Expires: 12/28/2025 [facility] Comment on above: Expected: 12/28/2024 (Approximate), Expires: 12/28/2025 Start: 12-28-2024 End: 02-27-2026 MG Breast - bilateral Screening Bilateral screening mammogram Imaging Routine Encounter for screening mammogram for malignant neoplasm of breast Expected: 12/28/2024 (Approximate), Expires: 02/27/2026 [facility] Comment on above: Expected: 12/28/2024 (Approximate), Expires: 02/27/2026 Start: 12-28-2024 End: 12-28-2024 Patient encounter procedure 12/28/2024 2:00 PM EDT Office Visit [facility] [address] [place] [id number] Felicia High PA [address] [place] [address] Arrived [facility] Comment on above: Arrived Start: 12-28-2024 End: 12-28-2025 Serotonin serum Serotonin serum Lab Routine Hormone disorder Expected: 12/28/2024 (Approximate), Expires: 12/28/2025 [facility] Comment on above: Expected: 12/28/2024 (Approximate), Expires: 12/28/2025 Start: 12-28-2024 End: 12-28-2025 Thyroglobulin Thyroglobulin Lab Routine Hormone disorder Expected: 12/28/2024 (Approximate), Expires: 12/28/2025 [facility] Comment on above: Expected: 12/28/2024 (Approximate), Expires: 12/28/2025 Start: 12-28-2024 End: 12-28-2025 Thyroglobulin Antibody Thyroglobulin Antibody Lab Routine Hormone disorder Expected: 12/28/2024 (Approximate), Expires: 12/28/2025 [facility] Comment on above: Expected: 12/28/2024 (Approximate), Expires: 12/28/2025 Start: 12-28-2024 End: 12-28-2025 Thyrotropin [Units/volume] in Serum or Plasma [facility] Comment on above: Ordered: 12/28/2024 Expected: 12/28/2024 (Approximate), Expires: 12/28/2025 DHEA-sulfate DHEA-sulfate Lab Routine Hormone disorder Ordered: 12/28/2024 [facility] Comment on above: Ordered: 12/28/2024 Estradiol Estradiol Lab Ro utine Hormone disorder Ordered: 12/28/2024 [facility] Comment on above: Ordered: 12/28/2024 Estrone Estrone Lab Rout ine Hormone disorder Ordered: 12/28/2024 [facility] Comment on above: Ordered: 12/28/2024 Ferritin [Mass/volum e] in Serum or Plasma Ferritin Lab Routine Hormone disorder Ordered: 12/28/2024 [facility] Comment on above: Ordered: 12/28/2024 Hemoglobin A1c/Hemoglobin.total in Blood Hemoglobin A1c Lab Routine Hormone disorder Ordered: 12/28/2024 [facility] Comment on above: Ordered: 12/28/2024 Progesterone Progesterone Lab Routine Hormone disorder Ordered: 12/28/2024 [facility] Comment on above: Ordered: 12/28/2024 Sex hormone binding globulin Sex hormone binding globulin Lab Routine Hormone disorder Ordered: 12/28/2024 [facility] Comment on above: Ordered: 12/28/2024 T3, reverse T3, reverse Lab Routine Hormone disorder Ordered: 12/28/2024 [facility] Comment on above: Ordered: 12/28/2024 TESTOSTERONE, FREE TESTOSTERONE, FREE Lab Routine Hormone disorder Ordered: 12/28/2024 [facility] Comment on above: Ordered: 12/28/2024 Testosterone, free, total Testos terone, free, total Lab Routine Hormone disorder Ordered: 12/28/2024 [facility] Comment on above: Ordered: 12/28/2024 THIN PREP TIS PAP AN D HR HPV DNA THIN PREP TIS PAP AND HR HPV DNA Pathology and Cytology Routine Well woman exam with routine gynecological exam H/O: hysterectomy Ordered: 12/28/2024 [facility] Work Phone: Comment on above: Ordered: 12/28/2024 Thyroid peroxidase antibody Thyroid peroxidase antibody Lab Routine Hormone disorder Ordered: 12/28/2024 [facility] Comment on above: Ordered: 12/28/2024 Thyroxine (T4) free [Mass/volume] in Serum or Plasma T4, free Lab Routine Hormone disorder Ordered: 12/28/2024 [facility] Comment on above: Ordered: 12/28/2024 Triiodothyronine (T3 ) Free [Mass/volume] in Serum or Plasma T3, free Lab Routine Hormone disorder Ordered: 12/28/2024 [facility] Comment on above: Ordered: 12/28/2024 Vitamin D 1,25 dihydroxy Vitamin D 1,25 dihydroxy Lab Routine Hormone disorder Ordered: 12/28/2024 [facility] Comment on above: Ordered: 12/28/2024 Immunizations Immunization Date Immunization Notes Care Provider Sangita strickland 11-15-2018 tetanus toxoid, redu sam diphtheria toxoid, and acellular pertussis vaccine, adsorbed Elizabeth Cabrera Other [facility] Payers Date Payer Category Payer Unknown [id number] 2023 Private Health Insurance [id number] 1980 Unknown [id number] 2.16.84 [id number] 1980 Unknown [id number] 2.16.84 0.1.334971.3.579.2.593 1980 Unknown [id number] 2.16.84 0.1.238974.3.579.2.1259 1980 Unknown [id number] 2.16.8 40.1.686362.3.579.2. 1980 Unknown [id number] 2.16.8 40.1.925139.3.579.2. 1980 Unknown [id number] 2.16.8 40.1.666102.3.579.2. 1980 Unknown [id number] 2.16.8 40.1.526424.3.579.2. 1980 Unknown [id number] 2.16.8 40.1.098842.3.579.2. 1980 Unknown [id number] 2.16.8 40.1.579203.3.579.2. 1980 Unknown [id number] 2.16.8 40.1.052653.3.579.2. 1980 Unknown [id number] 2.16.8 40.1.081040.3.579.2. 1980 Unknown [id number] 2.16.8 40.1.290221.3.579.2. 1980 Unknown [id number] 2.16.8 40.1.231066.3.579.2. 1980 Unknown [id number] 2.16.8 40.1.892189.3.579.2. 1980 Unknown [id number] 2.16.8 40.1.320074.3.579.2.727 1980 Unknown [id number] 2.16.8 40.1.816508.3.579.2.7 1980 Unknown [id number] 2.16.8 40.1.848733.3.579.2.7 1980 Unknown [id number] 2.16.8 40.1.420855.3.579.2.7 1980 Unknown [id number] 2.16.8 40.1.544280.3.579.2. 1980 Unknown [id number] 2.16.8 40.1.374043.3.579.2.727 1959 Unknown [id number] 2.16. 840.1.148787.19 1959 Unknown [id number] Unknown [id number] Social History Date Type Detail Facility Unknown if ever smoked [facility] Other Sex Assigned At [facility] Start: 01-29-2023 End: 09-07-2024 Tobacco smoking status Never smoked tobacco (finding) [facility] Tobacco smoking status Never [facility] Sexual Orientation [facility] Sex Female (finding) [facility] Tobacco smoking stat [facility] Tobacco smoking consumption unknown [facility] Start: 1980 Sex assigned at Not on file [facility] Clinical Notes 04-05-2022 to 12-28-2024 Tamanna Villegas MA - 12/28/2024 2:00 PM KEVIN Mejia - 12/28/2024 2:00 PM EDTLaboratoryLaboratoryLaboratory Note Date & Type Note Facility 12-28-2024 History of Present illness Narrative Reason for Appointment: Patient ID: Gale Sosa is a 44 y.o. female who presents for Gynecologic Exam Patient presents today for Annual Exam. MEDICATIONS Current Outpatient Medications Medication Instructions levothyroxine (SYNTHROID, LEVOXYL) 112 mcg, Oral, Daily meloxicam (MOBIC) 15 mg, Oral metFORMIN (GLUCOPHAGE) 500 mg, Oral ALLERGIES Allergies Allergen Reactions Megestrol Other Reaction(s): Unknown PROBLEMS Active Ambulatory Problems Diagnosis Date Noted No Active Ambulatory Problems Resolved Ambulatory Problems Diagnosis Date Noted No Resolved Ambulatory Problems No Additional Past Medical History HISTORY PAST MEDICAL HISTORY SOCIAL HISTORY No past medical history on file. Social History Tobacco Use Smoking status: Not on file Smokeless tobacco: Not on file Substance Use Topics Alcohol use: Not on file Drug use: Not on file FAMILY HISTORY No family history on file. SURGICAL HISTORY Past Surgical History: Procedure Laterality Date TOTAL ABDOMINAL HYSTERECTOMY 2021 REVIEW OF SYSTEMS Review of Systems: Review of Systems All other systems reviewed and are negative. OBJECTIVE Objective: Physical Exam Constitutional: Appearance: Normal appearance. She is well-developed. Genitourinary: Vulva normal. Cardiovascular: Rate and Rhythm: Normal rate and regular rhythm. Pulmonary: Effort: Pulmonary effort is normal. Breath sounds: Normal breath sounds. Abdominal: General: Bowel sounds are normal. There is no distension. Palpations: Abdomen is soft. Tenderness: There is no abdominal tenderness. There is no guarding or rebound. Musculoskeletal: General: No swelling. Normal range of motion. Right lower leg: No edema. Left lower leg: No edema. Neurological: Mental Status: She is alert and oriented to person, place, and time. Skin: General: Skin is warm and dry. Psychiatric: Mood and Affect: Mood normal. Behavior: Behavior normal. Vitals and nursing note reviewed. Exam conducted with a paint factory worker present. Vitals: Estimated body mass index is 27.4 kg/m as calculated from the following: Height as of 07/03/22: 5' 1 . Weight as of 12/25/23: 145 lb. BP: No LMP recorded (lmp unknown). Patient has had a hysterectomy. ASSESSMENT & PLAN ICD-10-CM 1. Well woman exam with routine gynecological exam Z01.419 THIN PREP TIS PAP AND HR HPV DNA 2. H/O: hysterectomy Z90.710 THIN PREP TIS PAP AND HR HPV DNA 3. Encounter for screening mammogram for malignant neoplasm of breast Z12.31 Bilateral screening mammogram Bilateral screening mammogram Annual: Patient presents today for an annual exam. Patient states she is doing well and has complaints of no libido. Pt stated she used to have intercourse 3-4 times a week and now once a week and weight gain. Pap was obtained without difficulty and patient given mammogram order to have scheduled/obtained. Orders Placed This Encounter Procedures Bilateral screening mammogram Follow Up: Patient is to return in one year for annual unless needed otherwise. Documented by Tamanna Villegas MA on behalf of: KEVIN Jones Reason for Appointment: Patient ID: Gale Sosa is a 44 y.o. female who presents for Gynecologic Exam Patient presents today for Annual Exam. MEDICATIONS Current Outpatient Medications Medication Instructions estradiol (Climara) 0.05 MG/24HR 1 patch, Transdermal, Weekly levothyroxine (SYNTHROID, LEVOXYL) 112 mcg, Oral, Daily meloxicam (MOBIC) 15 mg, Oral metFORMIN (GLUCOPHAGE) 500 mg, Oral, 2 times daily with meals progesterone (PROMETRIUM) 100 mg, Oral, Daily ALLERGIES Allergies Allergen Reactions Megestrol Other Reaction(s): Unknown PROBLEMS Active Ambulatory Problems Diagnosis Date Noted No Active Ambulatory Problems Resolved Ambulatory Problems Diagnosis Date Noted No Resolved Ambulatory Problems No Additional Past Medical History HISTORY PAST MEDICAL HISTORY SOCIAL HISTORY No past medical history on file. Social History Tobacco Use Smoking status: Not on file Smokeless tobacco: Not on file Substance Use Topics Alcohol use: Not on file Drug use: Not on file FAMILY HISTORY No family history on file. SURGICAL HISTORY Past Surgical History: Procedure Laterality Date TOTAL ABDOMINAL HYSTERECTOMY 2021 REVIEW OF SYSTEMS Review of Systems: Review of Systems Constitutional: Negative. HENT: Negative. Eyes: Negative. Respiratory: Negative. Cardiovascular: Negative. Gastrointestinal: Negative. Genitourinary: Negative. Musculoskeletal: Negative. Skin: Negative. Neurological: Negative. All other systems reviewed and are negative. Hematological: Negative. Endocrine: Negative. Allergic/Immunologic: Negative. OBJECTIVE Objective: Physical Exam Constitutional: Appearance: Normal appearance. Genitourinary: Right Adnexa: not tender and no mass present. Left Adnexa: not tender and no mass present. Cervix is absent. Uterus is absent. Breasts: Breasts are soft. Right: Normal. Left: Normal. HENT: Head: Normocephalic. Nose: Nose normal. Mouth/Throat: Mouth: Mucous membranes are moist. Cardiovascular: Rate and Rhythm: Normal rate. Pulmonary: Effort: Pulmonary effort is normal. Abdominal: General: Bowel sounds are normal. Palpations: Abdomen is soft. Musculoskeletal: General: Normal range of motion. Cervical back: Normal range of motion. Neurological: General: No focal deficit present. Mental Status: She is alert. Skin: General: Skin is warm and dry. Psychiatric: Mood and Affect: Mood normal. Vitals and nursing note reviewed. Exam conducted with a paint factory worker present. Vitals: Estimated body mass index is 28.15 kg/m as calculated from the following: Height as of this encounter: 5' 1 . Weight as of this encounter: 149 lb. BP: 118/72 No LMP recorded (lmp unknown). Patient has had a hysterectomy. ASSESSMENT & PLAN ICD-10-CM 1. Well woman exam with routine gynecological exam Z01.419 THIN PREP TIS PAP AND HR HPV DNA 2. H/O: hysterectomy Z90.710 THIN PREP TIS PAP AND HR HPV DNA metFORMIN (Glucophage) 500 MG tablet estradiol (Climara) 0.05 MG/24HR progesterone (Prometrium) 100 MG capsule 3. Encounter for screening mammogram for malignant neoplasm of breast Z12.31 Bilateral screening mammogram Bilateral screening mammogram 4. Hormone disorder E34.9 Estradiol Estrone Cortisol, free DHEA-sulfate Sex hormone binding globulin Insulin, total Serotonin serum TSH T4, free T3, reverse Progesterone Vitamin D 1,25 dihydroxy Ferritin T3, free Thyroglobulin Thyroglobulin Antibody Thyroid peroxidase antibody T4 TESTOSTERONE, FREE Testosterone, free, total Hemoglobin A1c Glucose, random C-peptide Cortisol, free Insulin, total Serotonin serum Thyroglobulin Thyroglobulin Antibody T4 Glucose, random C-peptide metFORMIN (Glucophage) 500 MG tablet estradiol (Climara) 0.05 MG/24HR progesterone (Prometrium) 100 MG capsule Annual: Patient presents today for an annual exam. Patient states she is doing well and has no complaints. Pap was obtained without difficulty and patient given mammogram order to have scheduled/obtained. Patient has concern for low libido and also weight gain since hysterectomy. Pt is interested in HRT. We will start patient of estradiol patch and ionized progesterone. We also will increase her medication of metformin to 1000mg /day. Patient will follow up via telehealth in 4-6 weeks to see how symptoms are at that time. We discussed [facility] and labs ordered if she decides to get them drawn Orders Placed This Encounter Procedures Bilateral screening mammogram Estradiol Estrone Cortisol, free DHEA-sulfate Sex hormone binding globulin Insulin, total Serotonin serum TSH T4, free T3, reverse Progesterone Vitamin D 1,25 dihydroxy Ferritin T3, free Thyroglobulin Thyroglobulin Antibody Thyroid peroxidase antibody T4 TESTOSTERONE, FREE Testosterone, free, total Hemoglobin A1c Glucose, random C-peptide Follow Up: Patient is to return in one year for annual unless needed otherwise. Documented by KVEIN Jones on behalf of: KEVIN Jones documented in this encounter [facility] 09-07-2024 Evaluation + Plan note Diagnostic Tests PendingUrine Culture 09/07/24 [facility] 03-15-2023 Evaluation + Plan note Future Scheduled TestsThyroid Stimulating Hormone 03/15/23 [facility] 01-31-2023 Evaluation + Plan note Future Scheduled TestsT3 Free 01/31/23Thyroid Stimulating Hormone 01/31/23Free T4 01/31/23 [facility] 01-31-2023 Evaluation + Plan note Future Scheduled TestsT3 Free 01/31/23Thyroid Stimulating Hormone 03/15/23Thyroid Stimulating Hormone 01/31/23Free T4 01/31/23 [facility] 01-29-2023 Evaluation + Plan note Diagnostic Tests PendingT3 Free 01/29/23 [facility] 04-05-2022 Evaluation note Encounter Date Diagnosis Assessment [...] condition Mar, Sore throat (ICD-10 - J02.9) [facility] [employer] Other Evaluation + Plan note Future Appointments Appointment Date:01/15/2024 04:40:00 PM Scheduled Provider:Maddison Basurto Location:[facility] Appointment Type: Open Future Scheduled Tests Laboratory* T3 Free 01/31/23 * Thyroid Stimulating Hormone 03/15/23 * Thyroid Stimulating Hormone 01/31/23 * Free T4 [facility] Well woman exam with routine gynecological exam Routine gynecological examination H/O: hysterectomy Acquired absence of both cervix and uterus Encounter for screening mammogram for malignant neoplasm of breast Hormone disorder Unspecified endocrine disorder documented in this encounter [facility] N[facility]ative - Reported* Type Description Date Medical History anxiety Medical History Hypothyroidism Surgical History EMERGENCY 2009 Surgical History APPENDECTOMY Surgical History hysterectomy 2021 Hospitalization History No Hospitalization histo ry information [facility] [employer] Other Hospital course Narrative No data available for this section [facility] No data available for this section [facility] No data available for this section [facility] Summary Purpose Family History No Family History Records FoundNo Family History Records FoundNo Family History Records FoundNo Family History Records Found No data available for this section No data available for this section No data available for this section No data available for this section No Family History Records FoundNo Family History Records Found No data available for this section No Family History Records Found No data available for this section No Family History Records FoundNo Family History Records FoundNo Family History Records FoundNo Family History Records FoundNo Family History Records Found Advance Directives No [...] section and content) DATE CREATED AUTHOR 02/17/2019 [facility] DATE CREATED AUTHOR AUTHOR'S ORGANIZ ATION 02/19/2019 [facility] DATE CREATED AUTHOR AUTHOR'S ORGANIZ ATION 02/25/2019 [facility] DATE CREATED AUTHOR AUTHOR'S ORGANIZ ATION 10/03/2022 [facility] DATE CREATED AUTHOR AUTHOR'S ORGANIZ ATION 12/27/2023 [facility] EPIC DATE CREATED AUTHOR AUTHOR'S ORGANIZ ATION 03/07/2024 [facility] DATE CREATED AUTHOR AUTHOR'S ORGANIZ ATION 03/08/2024 [facility] DATE CREATED AUTHOR AUTHOR'S ORGANIZ ATION 09/08/2024 [facility] DATE CREATED AUTHOR AUTHOR'S ORGANIZ ATION 09/10/2024 [facility] DATE CREATED AUTHOR AUTHOR'S ORGANIZ ATION 10/14/2024 [facility] DATE CREATED AUTHOR AUTHOR'S ORGANIZ ATION 10/16/2024 [facility] DATE CREATED AUTHOR AUTHOR'S ORGANIZ ATION 10/18/2024 [facility] REASON FOR VISIT (unrecogniz ed section and content) Reason Comments Gynecologic Exam Patient Care team informatio n (unrecognized section and content) Personnel Name: Maddison Basurto Address: Address: [address] [place] [address]- Personnel Name: Maddison Basurto Address: Address: [address] [place] [address]- Personnel Name: Maddison Basurto Address: Address: [address] [place] [address]- Personnel Name: Maddison Basurto Address: Address: [address] [place] [address]- Personnel Name: Maddison Basurto Address: Address: [address] [place] [address]- Personnel Name: Maddison Basurto Address: Address: [address] [place], [place] [id number]- Personnel Name: Maddison Basurto Address: [address] [place] [address]- [employer]: FOR RECORDS PERTAINING TO PATIENTS WHO ARE [...] PRIMARY CLINICAL RECORDS. [facility] [employer] [facility]. provides no warranty or guarantee of the accuracy or completeness of information in this document.
[2024-12-31 12:13] LABS: Age Gdln ACOG Testing Note (.); IGP, Aptima HPV, rfx 16/18,45 Note (.)
== END 2024-12-28 20:23 | disposition home or self-care (01) ==
LOC: LAB 20:22
PROVIDERS: Visit Provider Physician Assistant
DX: Z01.419 Encounter for gynecological examination (general) (routine) without abnormal findings (principal); Z90.710 Acquired absence of both cervix and uterus
CPT/HCPCS: 87624; 88175